=== PATIENT | female | born 1980 | race Caucasian/White ===

== ENCOUNTER 2019-02-06 12:38 | Inpatient (IN) | payer BC ==
[2019-02-06] MEDS ORDERED: SODIUM CHLORIDE 0.9% 1,000 ML IV STA (13:15)
[2019-02-06 13:40] LABS: Basophils # (A) 0.3 k/uL (0-0.2); Basophils % (A) 2 %; Eosinophils # (A) 0.3 k/uL (0-0.7); Eosinophils % (A) 2 %; HCT 33.6 % (34.0-46.0); HGB 10.6 gm/dL (11.4-16.0); Hypochromasia Moderate; Lymphocytes # (A) 1.5 k/uL (1.0-4.8); Lymphocytes % (A) 12 %; MCH 24.1 pg (25.0-35.0); MCHC 31.5 g/dL (31.0-37.0); MCV 76.6 fL (80.0-100.0); Mean Platelet Volume 6.1; Monocytes # (A) 0.7 k/uL (0-1.0); Monocytes % (A) 6 %; Neutrophils # (A) 9.8 k/uL (1.3-7.7); Neutrophils % (A) 77 %; Platelet Count 726 k/uL (150-450); RBC 4.38 m/uL (3.80-5.40); RDW 14.5 % (11.5-15.5); WBC 12.7 k/uL (3.8-10.6)
[2019-02-06 13:48] LABS: ALT 25 U/L (9-52); AST 21 U/L (14-36); African American GFR (CKD) >90 (>60 ml/min/1.73 sqM); Albumin 3.3 g/dL (3.5-5.0); Alkaline Phosphatase 62 U/L (38-126); Amylase <30 U/L (30-110); Anion Gap 9 mmol/L; Blood Urea Nitrogen 11 mg/dL (7-17); Calcium 9.7 mg/dL (8.4-10.2); Carbon Dioxide 27 mmol/L (22-30); Chloride 105 mmol/L (98-107); Glucose 101 mg/dL (74-99); Magnesium 2.1 mg/dL (1.6-2.3); Potassium 3.9 mmol/L (3.5-5.1); Sodium 141 mmol/L (137-145); Total Bilirubin 0.6 mg/dL (0.2-1.3); Total Protein 6.4 g/dL (6.3-8.2)
[2019-02-06 13:50] LABS: INR 1.1 (<1.2); Prothrombin Time 11.5 sec (9.0-12.0)
--- NOTE | 2019-02-06 14:10 | XR ---
EXAMINATION TYPE: XR chest 2V DATE OF EXAM: 02/06/2019 COMPARISON: NONE HISTORY: Shortness of breath and chest pain TECHNIQUE: Frontal and lateral views of the chest are obtained. FINDINGS: There is complete opacification of the left hemithorax. There is slight mediastinal shift to the right. The right lung demonstrates very mild central pulmonary vascular congestion most promin ent in the right infrahilar region. Osseous structures appear grossly intact. Trachea is shifted to t he right. Cardiomediastinal silhouette is obscured. IMPRESSION: Complete left hemithorax opacification. Primary consideration is for a large pleural eff usion given the slight rightward mediastinal shift. Alternative consideration is for endobronchial ob struction with mucous plugging or less likely mass.
--- NOTE | 2019-02-06 14:23 | ED ---
General Adult HPI - General Chief complaint: Recheck/Abnormal Lab/Rx Stated complaint: Abnormal EKG, chest pain Time Seen by Provider: 02/06/19 12:50 Source: patient, RN notes reviewed, old records reviewed Mode of arrival: wheelchair Limitations: no limitations - History of Present Illness Initial comments: Patient is a 38-year-old female presents emergency department today with lower extremity swelling, difficulty in breathing, decreased urine output and generalized weakness for the past month. Patient also complains of chronic constipation. She had an outpatient echocardiogram today so by her primary care doctor and was told to come to the emergency department for further evaluation. She does not know the results of the echocardiogram at this time. Patient reports that she started with a sinus infection a few weeks ago and seemed to develop worsening symptoms since that time. - Related Data Allergies Allergy/AdvReac Type Severity Reaction Status Date / Time No Known Allergies Allergy Verified 02/06/19 12:48 Review of Systems ROS Statement: Those systems with pertinent positive or pertinent negative responses have been documented in the HPI. ROS Other: All systems not noted in ROS Statement are negative. Past Medical History Past Medical History: No Reported History History of Any Multi-Drug Resistant Organisms: None Reported Past Surgical History: Orthopedic Surgery Past Psychological History: Anxiety, Depression Smoking Status: Never smoker Past Alcohol Use History: Rare Past Drug Use History: None Reported General Exam - General Exam Comments Initial Comments: 38-year-old female. Alert and oriented 3. Resting in bed. Shallow breathing noted. Limitations: no limitations General appearance: alert, in no apparent distress Head exam: Present: atraumatic, normocephalic, normal inspection Eye exam: Present: normal appearance, PERRL, EOMI. Absent: scleral icterus, conjunctival injection, periorbital swelling ENT exam: Present: normal exam, mucous membranes moist Neck exam: Present: normal inspection. Absent: tenderness, meningismus, lymphadenopathy Respiratory exam: Present: decreased breath sounds (Mother's breath sounds over the left lung field.). Absent: normal lung sounds bilaterally, respiratory distress, wheezes, rales, rhonchi, stridor Cardiovascular Exam: Present: regular rate, normal rhythm, normal heart sounds. Absent: systolic murmur, diastolic murmur, rubs, gallop, clicks GI/Abdominal exam: Present: soft, normal bowel sounds. Absent: distended, tenderness, guarding, rebound, rigid Back exam: Present: normal inspection Neurological exam: Present: alert, oriented X3, CN II-XII intact Psychiatric exam: Present: normal affect, normal mood Skin exam: Present: warm, dry, intact, normal color. 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 Blood work was initiated. Also, 12.7. Hemoglobin of 10.6. Lung sounds are diminished and she does have 4+ pitting edema bilateral lower extremities. Patient troponin test is negative. Verbal report of patient's echocardiogram shows a large pericardial effusion. Patient's resting comfortably in bed and appears stable. Oxygen saturations been 94% on room air. She was placed on oxygen to help with her breathing at this time. Chest x-ray shows evidence of opacification over the left lung field. I discussed all these findings with the family Patient. Discussed the possibility of neoplastic process. Patient family is agreeable for her to be admitted. We are to have consults to cardiothoracic surgery referral and large pericardial effusion. Discussed the case with Dr. Marks. - Lab Data Result diagrams: 02/06/19 13:02/06/19 13: Lab Results 02/06/19 02/06/19 02/06/19 Range/Units 13: 13: 13:19 WBC 12.7 H (3.8-10.6) k/uL RBC 4.38 (3.80-5.40) m/uL Hgb 10.6 L (11.4-16.0) gm/dL Hct 33.6 L (34.0-46.0) % MCV 76.6 L (80.0-100.0) fL MCH 24.1 L (25.0-35.0) pg MCHC 31.5 (31.0-37.0) g/dL RDW 14.5 (11.5-15.5) % Plt Count 726 H (150-450) k/uL Neutrophils % 77 % Lymphocytes % 12 % Monocytes % 6 % Eosinophils % 2 % Basophils % 2 % Neutrophils # 9.8 H (1.3-7.7) k/uL Lymphocytes # 1.5 (1.0-4.8) k/uL Monocytes # 0.7 (0-1.0) k/uL Eosinophils # 0.3 (0-0.7) k/uL Basophils # 0.3 H (0-0.2) k/uL Hypochromasia Moderate PT (9.0-12.0) sec INR (<1.2) APTT (22.0-30.0) sec Sodium 141 (137-145) mmol/L Potassium 3.9 (3.5-5.1) mmol/L Chloride 105 (98-107) mmol/L Carbon Dioxide 27 (22-30) mmol/L Anion Gap 9 mmol/L BUN 11 (7-17) mg/dL Creatinine 0.48 L (0.52-1.04) mg/dL Est GFR (CKD-EPI)AfAm >90 (>60 ml/min/1.73 sqM) Est GFR (CKD-EPI)NonAf >90 (>60 ml/min/1.73 sqM) Glucose 101 H (74-99) mg/dL Calcium 9.7 (8.4-10.2) mg/dL Magnesium 2.1 (1.6-2.3) mg/dL Total Bilirubin 0.6 (0.2-1.3) mg/dL AST 21 (14-36) U/L ALT 25 (9-52) U/L Alkaline Phosphatase 62 (38-126) U/L Troponin I (0.000-0.034) ng/mL NT-Pro-B Natriuret Pep 68 pg/mL Total Protein 6.4 (6.3-8.2) g/dL Albumin 3.3 L (3.5-5.0) g/dL Amylase <30 L (30-110) U/L Lipase 49 (23-300) U/L 02/06/19 02/06/19 Range/Units 13:19 13:19 WBC (3.8-10.6) k/uL RBC (3.80-5.40) m/uL Hgb (11.4-16.0) gm/dL Hct (34.0-46.0) % MCV (80.0-100.0) fL MCH (25.0-35.0) pg MCHC (31.0-37.0) g/dL RDW (11.5-15.5) % Plt Count (150-450) k/uL Neutrophils % % Lymphocytes % % Monocytes % % Eosinophils % % Basophils % % Neutrophils # (1.3-7.7) k/uL Lymphocytes # (1.0-4.8) k/uL Monocytes # (0-1.0) k/uL Eosinophils # (0-0.7) k/uL Basophils # (0-0.2) k/uL Hypochromasia PT 11.5 (9.0-12.0) sec INR 1.1 (<1.2) APTT 24.0 (22.0-30.0) sec Sodium (137-145) mmol/L Potassium (3.5-5.1) mmol/L Chloride (98-107) mmol/L Carbon Dioxide (22-30) mmol/L Anion Gap mmol/L BUN (7-17) mg/dL Creatinine (0.52-1.04) mg/dL Est GFR (CKD-EPI)AfAm (>60 ml/min/1.73 sqM) Est GFR (CKD-EPI)NonAf (>60 ml/min/1.73 sqM) Glucose (74-99) mg/dL Calcium (8.4-10.2) mg/dL Magnesium (1.6-2.3) mg/dL Total Bilirubin (0.2-1.3) mg/dL AST (14-36) U/L ALT (9-52) U/L Alkaline Phosphatase (38-126) U/L Troponin I <0.012 (0.000-0.034) ng/mL NT-Pro-B Natriuret Pep pg/mL Total Protein (6.3-8.2) g/dL Albumin (3.5-5.0) g/dL Amylase (30-110) U/L Lipase (23-300) U/L 02/06/19 14:21 EKG shows sinus tachycardia complete report a metabolic. Cannot rule out anterior infarct age undetermined. Abnormal EKG. Ventricular rate of 104 bpm. MA interval 136 most seconds. QRS duration 90 ms. QT QTC 340/457 ms. - Radiology Data Radiology results: report reviewed [facility] complete hemithorax opacification. Primary consideration is for a large pleural effusion given the right word mediastinal shift. Alternative consideration for endobronchial obstruction with mucous plugging or less likely mass. Disposition Clinical Impression: Pleural effusion, Pericardial effusion, Chronic constipation, Dyspnea Disposition: ADMITTED IP TO THIS HOSP Condition: Stable Is patient prescribed a controlled substance at d/c from ED?: No Referrals: Jose Moreno MD [Primary Care Provider] - 1-2 days Time of Disposition: 15:02
[2019-02-06] MEDS ORDERED: ONDANSETRON 4 MG/2 ML VIAL IVP PRN (15:03)
[2019-02-06] MEDS ORDERED: IBUPROFEN 400 MG TAB PO PRN (15:03)
[2019-02-06] MEDS ORDERED: cefTRIAXone IN SWFI 1,000 MG/10 ML SYRINGE IVP STA (15:03)
[2019-02-06] MEDS ORDERED: NALOXONE 0.4 MG/ML 1 ML VIAL IV PRN (15:03)
[2019-02-06] MEDS ORDERED: MORPHINE SULFATE 4 MG/ML SYRINGE IV PRN (15:03)
[2019-02-06] MEDS ORDERED: ACETAMINOPHEN TAB 325 MG TAB PO PRN (15:03)
[2019-02-06] MEDS ORDERED: SODIUM CHLORIDE 0.9% 1,000 ML IV SCH (15:15)
[2019-02-06 15:20] LABS: Appearance,Urine Cloudy (Clear); Bacteria,Urine Many /hpf; Bilirubin,Urine Negative (Negative); Blood,Urine Negative (Negative); Color,Urine Yellow; Glucose,Urine (UA) Negative (Negative); Ketones,Urine 1+ (Negative); Leukocyte Esterase,Urine Moderate (Negative); Mucus,Urine Many /hpf; Nitrite,Urine Positive (Negative); PH, Urine 5.5 (5.0-8.0); Protein,Urine 1+ (Negative); RBC,Urine 4 /hpf (0-5); Specific Gravity,Urine 1.027 (1.001-1.035); Squamous Epithelial Cell,Urine 5 /hpf (0-4); WBC,Urine 20 /hpf (0-5)
--- NOTE | 2019-02-06 17:22 | P.GSCN ---
<Jill Rhoades - Last Filed: 02/06/19 17:18> History of Present Illness Consult date: 02/06/19 Reason for Consult: Pericardial effusion, pleural effusion Requesting physician: Blanka Hamlin History of present illness: This is a 38 year old female patient who follows on an outpatient basis with Dr. Moreno. She has no significant medical history, however for the last month she has multiple complaints of left sided chest pain, shortness of breath, decreased urine output, generalized weakness, vomitting with abdominal pain, chronic constipation with diarrhea last week. In addition, she recently lost her mother to heart disease and has been having a difficult time with it and was placed on anti-depressants. She denies any fever, sick contacts, recent travel, or any other aggravating or alleviating symptoms. When reflecting on how she felt 2-3 months ago she states none of these symptoms were present. Today she had a transthoracic echocardiogram which was ordered by her primary care physician, and she was immediately sent to the emergency room for reports of large pericardial effusion. EKG was completed in the emergency room showing sinus tachycardia with right bundle branch block, heart rate 104. Chest x-ray was completed showing complete opacification of the left side with a slight mediastinal shift to the right. Urinalysis was completed resulting in positive nitrates, positive protein and ketones, moderate leukocyte esterase, 28 WBCs, and many bacteria. White blood cell count was 12.7, hemoglobin 10.6, platelet count 726, troponin was negative, and BNP was 68. Due to her pericardial effusion and pleural effusion Dr. Yan from cardiothoracic surgery was consulted for surgical recommendations. Review of Systems Review of systems was completed and was negative except as noted. - Constitutional Reports fatigue, Reports weakness - Cardiovascular Reports chest pain, Reports decreased exercise tolerance, Reports leg edema, Reports shortness of breath - Gastrointestinal Reports abdominal pain, Reports constipation, Reports diarrhea, Reports vomiting Past Medical History Past Medical History: No Reported History History of Any Multi-Drug Resistant Organisms: None Reported Past Surgical History: Orthopedic Surgery Additional Past Surgical History / Comment(s): Ankle surgery for left broken ankle, with pins placed Past Psychological History: Anxiety, Depression Additional Psychological History / Comment(s): Lost her mother recently Smoking Status: Never smoker Past Alcohol Use History: Rare Past Drug Use History: None Reported - Past Family History Mother Family Medical History: Coronary Artery Disease (CAD) Additional Family Medical History / Comment(s): at age 62 Father Family Medical History: Cancer Additional Family Medical History / Comment(s): Testicular cancer Medications and Allergies Home Medications Medication Instructions Recorded Confirmed Type Docusate [Colace] 100 mg PO HS 02/06/19 02/06/19 History Famotidine [Pepcid] 40 mg PO BID 02/06/19 02/06/19 History Ibuprofen [Motrin Ib] 800 mg PO TID PRN 02/06/19 02/06/19 History Ondansetron [Zofran ODT] 4 mg PO QID 02/06/19 02/06/19 History Sertraline [Zoloft] 50 mg PO DAILY 02/06/19 02/06/19 History Allergies Allergy/AdvReac Type Severity Reaction Status Date / Time No Known Allergies Allergy Verified 02/06/19 15:40 Surgical - Exam Vital Signs Temp Pulse Resp BP Pulse Ox 97.3 F L 110 H 20 115/72 96 02/06/19 12:41 02/06/19 12:41 02/06/19 12:41 02/06/19 12:41 02/06/19 12:41 - General well developed, well nourished, no distress, no pain, obese - Eyes PERRL, normal ocular movement - ENT no hearing loss, poor senior care - Neck no masses, no bruits, trachea midline - Respiratory Lungs sounds diminished on the left side. Respirations even, nonlabored. Currently on 2 L nasal cannula with oxygen saturation 97%. No chest wall deformities. No clubbing or cyanosis present. - Cardiovascular S1, S2 present. No distant heart sounds noted. No JVD. Tachycardic but regular rate and rhythm, sinus tach on telemetry. Palpable peripheral pulses bilaterally. 3-4+ pitting edema to bilateral lower extremities. - Abdomen Obese Abdomen: soft, non tender, bowel sounds - Genitourinary Deferred - Rectum Deferred - Integumentary no rash, no growths - Neurologic normal coordination, normal sensation - Musculoskeletal normal posture - Psychiatric oriented to time, oriented to person, oriented to place, speech is normal Results - Labs 02/06/19 13:19 02/06/19 13:19 Abnormal Lab Results - Last 24 Hours (Table) 02/06/19 02/06/19 02/06/19 Range/Units 13:19 13:19 15:00 WBC 12.7 H (3.8-10.6) k/uL Hgb 10.6 L (11.4-16.0) gm/dL Hct 33.6 L (34.0-46.0) % MCV 76.6 L (80.0-100.0) fL MCH 24.1 L (25.0-35.0) pg Plt Count 726 H (150-450) k/uL Neutrophils # 9.8 H (1.3-7.7) k/uL Basophils # 0.3 H (0-0.2) k/uL Creatinine 0.48 L (0.52-1.04) mg/dL Glucose 101 H (74-99) mg/dL Albumin 3.3 L (3.5-5.0) g/dL Amylase <30 L (30-110) U/L Urine Appearance Cloudy H (Clear) Urine Protein 1+ H (Negative) Urine Ketones 1+ H (Negative) Urine Nitrite Positive H (Negative) Ur Leukocyte Esterase Moderate H (Negative) Urine WBC 20 H (0-5) /hpf Ur Squamous Epith Cells 5 H (0-4) /hpf Urine Bacteria Many H (None) /hpf Urine Mucus Many H (None) /hpf Diabetes panel 02/06/19 Range/Units 13:19 Sodium 141 (137-145) mmol/L Potassium 3.9 (3.5-5.1) mmol/L Chloride 105 (98-107) mmol/L Carbon Dioxide 27 (22-30) mmol/L BUN 11 (7-17) mg/dL Creatinine 0.48 L (0.52-1.04) mg/dL Glucose 101 H (74-99) mg/dL Calcium 9.7 (8.4-10.2) mg/dL AST 21 (14-36) U/L ALT 25 (9-52) U/L Alkaline Phosphatase 62 (38-126) U/L Total Protein 6.4 (6.3-8.2) g/dL Albumin 3.3 L (3.5-5.0) g/dL Calcium panel 02/06/19 Range/Units 13:19 Calcium 9.7 (8.4-10.2) mg/dL Albumin 3.3 L (3.5-5.0) g/dL Pituitary panel 02/06/19 Range/Units 13:19 Sodium 141 (137-145) mmol/L Potassium 3.9 (3.5-5.1) mmol/L Chloride 105 (98-107) mmol/L Carbon Dioxide 27 (22-30) mmol/L BUN 11 (7-17) mg/dL Creatinine 0.48 L (0.52-1.04) mg/dL Glucose 101 H (74-99) mg/dL Calcium 9.7 (8.4-10.2) mg/dL Adrenal panel 02/06/19 Range/Units 13:19 Sodium 141 (137-145) mmol/L Potassium 3.9 (3.5-5.1) mmol/L Chloride 105 (98-107) mmol/L Carbon Dioxide 27 (22-30) mmol/L BUN 11 (7-17) mg/dL Creatinine 0.48 L (0.52-1.04) mg/dL Glucose 101 H (74-99) mg/dL Calcium 9.7 (8.4-10.2) mg/dL Total Bilirubin 0.6 (0.2-1.3) mg/dL AST 21 (14-36) U/L ALT 25 (9-52) U/L Alkaline Phosphatase 62 (38-126) U/L Total Protein 6.4 (6.3-8.2) g/dL Albumin 3.3 L (3.5-5.0) g/dL - Imaging Chest x-ray: report reviewed, image reviewed US - kidney/bladder: image reviewed Additional studies: Transthoracic echocardiogram films revealed Assessment and Plan Assessment: 1. Pericardial transthoracic echocardiogram 2. Large pleural effusion 3. Leukocytosis 4. Urinary tract infection 5. Chronic constipation 6. Anxiety/depression Plan: Patient was seen and examined at the bedside. Chart/diagnostics reviewed. Echocardiogram sounds and chest x-ray were reviewed with Dr. Mercado. Case was discussed with Dr. Mercado. He will see the patient shortly. Consultation placed for pulmonology, appreciate recommendations. Incentive spirometry ordered and encouraged. On review the echocardiogram films, it is difficult to tell if effusion is more pleural versus pericardial. Patient is in no acute distress, no distant heart sounds present, no JVD present, patient is calm and without difficulty breathing at this time. No surgical intervention at this time, however she may need pericardial drainage after pleural drainage. More recommendations follow. Thank you for this consult. We look forward to providing care for this patient. Time with Patient: Greater than 30 <Teetee Mercado - Last Filed: 02/06/19 17:51> Surgical - Exam Vital Signs Temp Pulse Resp BP Pulse Ox 97.3 F L 110 H 20 115/72 96 02/06/19 12:41 02/06/19 12:41 02/06/19 12:41 02/06/19 12:41 02/06/19 12:41 Results - Labs 02/06/19 13:19 02/06/19 13:19 Abnormal Lab Results - Last 24 Hours (Table) 02/06/19 02/06/19 02/06/19 Range/Units 13: 13: 15:00 WBC 12.7 H (3.8-10.6) k/uL Hgb 10.6 L (11.4-16.0) gm/dL Hct 33.6 L (34.0-46.0) % MCV 76.6 L (80.0-100.0) fL MCH 24.1 L (25.0-35.0) pg Plt Count 726 H (150-450) k/uL Neutrophils # 9.8 H (1.3-7.7) k/uL Basophils # 0.3 H (0-0.2) k/uL Creatinine 0.48 L (0.52-1.04) mg/dL Glucose 101 H (74-99) mg/dL Albumin 3.3 L (3.5-5.0) g/dL Amylase <30 L (30-110) U/L Urine Appearance Cloudy H (Clear) Urine Protein 1+ H (Negative) Urine Ketones 1+ H (Negative) Urine Nitrite Positive H (Negative) Ur Leukocyte Esterase Moderate H (Negative) Urine WBC 20 H (0-5) /hpf Ur Squamous Epith Cells 5 H (0-4) /hpf Urine Bacteria Many H (None) /hpf Urine Mucus Many H (None) /hpf Diabetes panel 02/06/19 Range/Units 13:19 Sodium 141 (137-145) mmol/L Potassium 3.9 (3.5-5.1) mmol/L Chloride 105 (98-107) mmol/L Carbon Dioxide 27 (22-30) mmol/L BUN 11 (7-17) mg/dL Creatinine 0.48 L (0.52-1.04) mg/dL Glucose 101 H (74-99) mg/dL Calcium 9.7 (8.4-10.2) mg/dL AST 21 (14-36) U/L ALT 25 (9-52) U/L Alkaline Phosphatase 62 (38-126) U/L Total Protein 6.4 (6.3-8.2) g/dL Albumin 3.3 L (3.5-5.0) g/dL Calcium panel 02/06/19 Range/Units 13:19 Calcium 9.7 (8.4-10.2) mg/dL Albumin 3.3 L (3.5-5.0) g/dL Pituitary panel 02/06/19 Range/Units 13:19 Sodium 141 (137-145) mmol/L Potassium 3.9 (3.5-5.1) mmol/L Chloride 105 (98-107) mmol/L Carbon Dioxide 27 (22-30) mmol/L BUN 11 (7-17) mg/dL Creatinine 0.48 L (0.52-1.04) mg/dL Glucose 101 H (74-99) mg/dL Calcium 9.7 (8.4-10.2) mg/dL Adrenal panel 02/06/19 Range/Units 13:19 Sodium 141 (137-145) mmol/L Potassium 3.9 (3.5-5.1) mmol/L Chloride 105 (98-107) mmol/L Carbon Dioxide 27 (22-30) mmol/L BUN 11 (7-17) mg/dL Creatinine 0.48 L (0.52-1.04) mg/dL Glucose 101 H (74-99) mg/dL Calcium 9.7 (8.4-10.2) mg/dL Total Bilirubin 0.6 (0.2-1.3) mg/dL AST 21 (14-36) U/L ALT 25 (9-52) U/L Alkaline Phosphatase 62 (38-126) U/L Total Protein 6.4 (6.3-8.2) g/dL Albumin 3.3 L (3.5-5.0) g/dL Assessment and Plan Plan: As above. Discussed with Dr Ortega. Norris Pleural/pericardial effusion . Hemodynamic surprisingly relatively stable with BP 129/787 HR 104, 96% O2 sat Plan would be to proceed with therapeutic and diagnostic left thoracentesis initially. Repeat echo subsequently to re-evaluate pericardial effusion to decide if it warrants drainage. Plan explained to patient and her father. Will keep her NPO fo row. Teetee Mercado MD
[2019-02-06] MEDS: DEXTROSE 5%-0.45% NACL 1,000 ML IV SCH (18:06)
--- NOTE | 2019-02-06 19:16 | US ---
EXAMINATION TYPE: US chest DATE OF EXAM: 02/06/2019 COMPARISON: XR CLINICAL HISTORY: Markings for thoracentesis by pulmonary staff. Markings for thora. TECHNIQUE: Targeted ultrasound of the posterior lower bilateral hemithoraces EXAM MEASUREMENTS: Right Pleural Effusion pocket size: no fluid seen at this time Left Pleural Effusion pocket size: To tissue: 5.91 cm Full pocket: 12.15 cm Left skin surface to fluid distance: 3.55 cm Left side marked for possible thoracentesis outside the dept. Pulmonologists are able to review the images in the patient?s EMR. IMPRESSIONS: There is demonstration of a large left pleural effusion.
[2019-02-06 19:30] LABS: Glucose,Whole Blood 96 mg/dL (75-99)
--- NOTE | 2019-02-06 19:56 | P.CNPUL ---
History of Present Illness Consult date: 02/06/19 Reason for consult: pleural effusion Chief complaint: Shortness of breath and chest pain. History of present illness: This is a 38-year-old female with no significant past medical history except for anxiety and depression, nonsmoker, patient has been seeing her primary care physician for the last few weeks with mostly complaints of musculoskeletal left- sided chest pain, shortness of breath, generalized weakness, increased fluid retention and swelling in her lower extremities, intermittent episodes of vague abdominal pains, nausea and vomiting. Patient had a recent loss of her mother secondary to heart disease, and patient was placed on antidepressants. Patient was sent for a transthoracic echocardiogram as part of the workup for her symptoms, and she was told that she had a large pleural effusion and a large pericardial effusion hence she was sent to the emergency room for further evaluation. EKG in the ER showed sinus tachycardia with right bundle branch block pattern. Chest x-ray showed significant left sided pleural effusion with mediastinal shift to the right. Urinalysis was positive for nitrates, protein and ketones and leukocytes esterase. Obviously there was evidence of pyuria and bacteriuria in the urine. Patient was also noted to have elevated platelets of 726. She had normal BNP level. Patient was seen initially by cardiac surgery, and I was notified by the cardiac surgeon about her pleural effusion, hence I made arrangements to transfer the patient to the ICU from the monitor bed on , and I came in and performed a left-sided thoracentesis. 1750 mL of serosanguineous fluid removed from the left pleural space, and the fluid was sent for different diagnostic studies. In the meantime I have ordered some laboratory studies including thyroid studies, BARBARA, sed rate, CA 125, and a pelvic ultrasound to be done tomorrow. Patient had no previous history of recent pulmonary infection she had no recent history of cardiac issues patient has been complaining of multiple constitutional symptoms as noted above. For her abnormal urinalysis, patient was placed on Rocephin. Cultures of the urine are pending. Review of Systems Constitutional: Multiple symptoms as noted in HPI. Pulmonary: Shortness of breath and musculoskeletal chest wall pain on the left side when she moves no cough no fever no chills no hemoptysis. cardiac: Denies any palpitations, denies any orthopnea, denies any syncope. Denies any anginal symptoms. GI: Intermittent episodes of nausea and vomiting for the last few weeks. Genitourinary: Denies any dysuria frequency or urgency. Endocrine: Denies any heat or cold intolerance. Denies any polyuria polydipsia or polyphagia. [place] skeletal: Mostly symptoms of generalized weakness and fatigue. Neurologic: Denies any headaches no blurred vision dizziness, but she does have generalized weakness. Psychiatric: Patient has symptoms of depression anxiety denies any suicidal or homicidal thoughts. Hematologic: Denies any clotting bleeding or bruising. Skin: Denies any pruritus and rashes. Past Medical History Past Medical History: No Reported History History of Any Multi-Drug Resistant Organisms: None Reported Past Surgical History: Orthopedic Surgery Additional Past Surgical History / Comment(s): Ankle surgery for left broken ankle, with pins placed Past Psychological History: Anxiety, Depression Additional Psychological History / Comment(s): Lost her mother recently Smoking Status: Never smoker Past Alcohol Use History: None Reported Past Drug Use History: None Reported - Past Family History Mother Family Medical History: Coronary Artery Disease (CAD) Additional Family Medical History / Comment(s): at age 62-bad valve- pacemaker Father Family Medical History: Cancer Additional Family Medical History / Comment(s): Testicular cancer Medications and Allergies Home Medications Medication Instructions Recorded Confirmed Type Docusate [Colace] 100 mg PO HS 02/06/19 02/06/19 History Famotidine [Pepcid] 40 mg PO BID 02/06/19 02/06/19 History Ibuprofen [Motrin Ib] 800 mg PO TID PRN 02/06/19 02/06/19 History Ondansetron [Zofran ODT] 4 mg PO QID 02/06/19 02/06/19 History Sertraline [Zoloft] 50 mg PO DAILY 02/06/19 02/06/19 History Allergies Allergy/AdvReac Type Severity Reaction Status Date / Time No Known Allergies Allergy Verified 02/06/19 15:40 Physical Exam Vitals: Vital Signs Temp Pulse Pulse Resp BP BP Pulse Ox 02/06/19 17:34 98.2 F 108 H 26 H 134/88 97 02/06/19 17:29 24 02/06/19 16:30 104 H 16 129/87 96 02/06/19 16:00 104 H 20 120/76 96 02/06/19 15:30 103 H 24 130/79 98 02/06/19 14:27 103 H 18 130/79 97 02/06/19 13:30 105 H 21 142/104 100 02/06/19 13:29 100 02/06/19 12:41 97.3 F L 110 H 20 115/72 96 Intake and Output 02/06/19 02/06/19 02/06/19 06:59 14:59 22:59 Other: Voiding Method Toilet Weight 111.13 kg Physical Exam: Revealed a 38-year-old female pleasant, looks chronically ill. Head: Atraumatic normocephalic. HEENT:[Neck is supple.] [No neck masses.] [No thyromegaly.] [No JVD.] No stridor. Chest: [Diminished breath sounds and dullness on the left side, however right side is clear. No crackles or rhonchi or wheezes. Cardiac Exam: [Normal S1 and S2, no S3 gallop, no murmur.] Abdomen: [Obese, Soft, nontender, no megaly, no rebound, no guarding, normal bowel sounds.] Extremities: [No clubbing, 2+ bipedal edema, no cyanosis.] Neurological Exam: [No focal neurologic deficit.] Alert and oriented 3. Psychiatric: Normal mood affect and normal mental status examination. Skin: No rashes. Musculoskeletal: No deformities normal range of motion. Results - Laboratory Findings CBC and BMP: 02/06/19 13:19 02/06/19 13:19 PT/INR, D-dimer PT 11.5 sec (9.0-12.0) 02/06/19 13: INR 1.1 (<1.2) 02/06/19 13:19 Abnormal lab findings: Abnormal Labs 02/06/19 02/06/19 02/06/19 13:19 13:19 15:00 WBC 12.7 H Hgb 10.6 L Hct 33.6 L MCV 76.6 L MCH 24.1 L Plt Count 726 H Neutrophils # 9.8 H Basophils # 0.3 H Creatinine 0.48 L Glucose 101 H Albumin 3.3 L Amylase <30 L Urine Appearance Cloudy H Urine Protein 1+ H Urine Ketones 1+ H Urine Nitrite Positive H Ur Leukocyte Esterase Moderate H Urine WBC 20 H Ur Squamous Epith Cells 5 H Urine Bacteria Many H Urine Mucus Many H - Diagnostic Findings Chest x-ray: image reviewed (As noted in HPI.) Assessment and Plan Assessment: Impression: 1 left-sided pleural effusion, exact histology is not clear, however considering the patient's age and that the results of the fluid, I would definitely be concerned about malignancy. Hence the fluid was sent for different diagnostic studies. Including cytology. Possibility of infection and parapneumonic pleural effusion is not entirely ruled out, cell count and differential and cultures are pending on the fluid. 2 status post left-sided thoracentesis 3 possible pericardial effusion, repeat echocardiogram will be done in a.m. 4 acute urinary tract infection 5 chronic constipation, thyroid studies have been ordered. 6 history of anxiety and depression. Recommendation: Left-sided thoracentesis was performed and the fluid was sent for different diagnostic studies. Repeat chest x-ray, echocardiogram in a.m. Agree with Rocephin for urinary tract infection Thyroid studies plus BARBARA, sed rate, CA 125, were ordered. Ultrasound of the abdomen and pelvis was ordered to be done in a.m., would be concerned about the possibility of ovarian malignancy with pleural effusion. And that is yet to be determined. We will continue to follow. Time with Patient: Greater than 30
--- NOTE | 2019-02-06 19:58 | XR ---
EXAMINATION TYPE: XR chest 1V portable DATE OF EXAM: 02/06/2019 COMPARISON: Today HISTORY: Short of breath TECHNIQUE: Single frontal view of the chest is obtained. FINDINGS: There is significant opacification left hemithorax. The right lung is relatively clear. Th ere are chest leads. IMPRESSION: Left side pulmonary consolidation and pleural fluid improved slightly compared to exam e arlier today. Heart is shifted slightly to the right side suggestive of some degree of tension hydrot horax.
[2019-02-06 20:36] LABS: T4, Free (Free Thyroxine) 2.39 ng/dL (0.78-2.19)
--- NOTE | 2019-02-06 21:04 | P.HPIM ---
History of Present Illness H&P Date: 02/06/19 Chief Complaint: Pleural effusion This is interested on 38-year-old female who saw me last week in the office was complaining of significant dyspnea. Murmur was heard and echocardiogram was ordered and showed once dental large left pleural effusion with possible pericardial effusion. The patient has now had status post left sided thoracentesis. The patient's studies on the fluid are pending. She is a nonsmoker. Hemodynamically she has been stable. No fever or chills although we treated her for element of infection because of her significant dyspnea and cough. Review of Systems Constitutional: Denies chills, Denies fever Eyes: denies blurred vision, denies pain Ears, nose, mouth and throat: Denies headache, Denies sore throat Cardiovascular: Denies chest pain, Denies shortness of breath Respiratory: Reports cough Gastrointestinal: Denies abdominal pain, Denies diarrhea, Denies nausea, Denies vomiting Genitourinary: Denies dysuria, Denies hematuria Musculoskeletal: Denies myalgias Past Medical History Past Medical History: No Reported History History of Any Multi-Drug Resistant Organisms: None Reported Past Surgical History: Orthopedic Surgery Additional Past Surgical History / Comment(s): Ankle surgery for left broken an kle, with pins placed Past Psychological History: Anxiety, Depression Additional Psychological History / Comment(s): Lost her mother recently Smoking Status: Never smoker Past Alcohol Use History: None Reported Past Drug Use History: None Reported - Past Family History Mother Family Medical History: Coronary Artery Disease (CAD) Additional Family Medical History / Comment(s): at age 62-bad valve- pacemaker Father Family Medical History: Cancer Additional Family Medical History / Comment(s): Testicular cancer Medications and Allergies Home Medications Medication Instructions Recorded Confirmed Type Docusate [Colace] 100 mg PO HS 02/06/19 02/06/19 History Famotidine [Pepcid] 40 mg PO BID 02/06/19 02/06/19 History Ibuprofen [Motrin Ib] 800 mg PO TID PRN 02/06/19 02/06/19 History Ondansetron [Zofran ODT] 4 mg PO QID 02/06/19 02/06/19 History Sertraline [Zoloft] 50 mg PO DAILY 02/06/19 02/06/19 History Allergies Allergy/AdvReac Type Severity Reaction Status Date / Time No Known Allergies Allergy Verified 02/06/19 15:40 Physical Exam Vitals: Vital Signs Temp Pulse Pulse Resp BP BP Pulse Ox 02/06/19 17:34 98.2 F 108 H 26 H 134/88 97 02/06/19 17:29 24 02/06/19 16:30 104 H 16 129/87 96 02/06/19 16:00 104 H 20 120/76 96 02/06/19 15:30 103 H 24 130/79 98 02/06/19 14:27 103 H 18 130/79 97 02/06/19 13:30 105 H 21 142/104 100 02/06/19 13:29 100 02/06/19 12:41 97.3 F L 110 H 20 115/72 96 Intake and Output 02/06/19 02/06/19 02/06/19 06:59 14:59 22:59 Other: Voiding Method Toilet Weight 111.13 kg - Constitutional General appearance: no acute distress, obese - EENT Eyes: EOMI - Neck Neck: no lymphadenopathy - Respiratory Respiratory: left: rales, rhonchi - Cardiovascular Rhythm: regular Heart sounds: normal: S1, S2 Abnormal Heart Sounds: no S3 Gallop - Gastrointestinal General gastrointestinal: soft, no tenderness - Psychiatric Psychiatric: A&O x's 3 Results CBC & Chem 7: 02/06/19 13:19 02/06/19 13:19 Labs: Abnormal Lab Results - Last 24 Hours (Table) 02/06/19 02/06/19 02/06/19 Range/Units : 13:19 15:00 WBC 12.7 H (3.8-10.6) k/uL Hgb 10.6 L (11.4-16.0) gm/dL Hct 33.6 L (34.0-46.0) % MCV 76.6 L (80.0-100.0) fL MCH 24.1 L (25.0-35.0) pg Plt Count 726 H (150-450) k/uL Neutrophils # 9.8 H (1.3-7.7) k/uL Basophils # 0.3 H (0-0.2) k/uL Creatinine 0.48 L (0.52-1.04) mg/dL Glucose 101 H (74-99) mg/dL Albumin 3.3 L (3.5-5.0) g/dL Amylase <30 L (30-110) U/L Free T4 (0.78-2.19) ng/dL Urine Appearance Cloudy H (Clear) Urine Protein 1+ H (Negative) Urine Ketones 1+ H (Negative) Urine Nitrite Positive H (Negative) Ur Leukocyte Esterase Moderate H (Negative) Urine WBC 20 H (0-5) /hpf Ur Squamous Epith Cells 5 H (0-4) /hpf Urine Bacteria Many H (None) /hpf Urine Mucus Many H (None) /hpf 02/06/19 Range/Units 19:51 WBC (3.8-10.6) k/uL Hgb (11.4-16.0) gm/dL Hct (34.0-46.0) % MCV (80.0-100.0) fL MCH (25.0-35.0) pg Plt Count (150-450) k/uL Neutrophils # (1.3-7.7) k/uL Basophils # (0-0.2) k/uL Creatinine (0.52-1.04) mg/dL Glucose (74-99) mg/dL Albumin (3.5-5.0) g/dL Amylase (30-110) U/L Free T4 2.39 H (0.78-2.19) ng/dL Urine Appearance (Clear) Urine Protein (Negative) Urine Ketones (Negative) Urine Nitrite (Negative) Ur Leukocyte Esterase (Negative) Urine WBC (0-5) /hpf Ur Squamous Epith Cells (0-4) /hpf Urine Bacteria (None) /hpf Urine Mucus (None) /hpf Thrombosis Risk Factor Assmnt - Choose All That Apply Any of the Below Risk Factors Present?: Yes Each Factor Represents 1 point: Age 41-60 years, Obesity (BMI >25), Swollen legs (current) Other Risk Factors: No Other congenital or acquired thrombophilia - If yes, enter type in comment: No Thrombosis Risk Factor Assessment Total Risk Factor Score: 3 Thrombosis Risk Factor Assessment Level: Moderate Risk Assessment and Plan (1) Dyspnea Current Visit: Yes Status: Acute Code(s): R06.00 - DYSPNEA, UNSPECIFIED SNOMED Code(s): 754031819 (2) Pericardial effusion Current Visit: Yes Status: Acute Code(s): I31.3 - PERICARDIAL EFFUSION (NONINFLAMMATORY) SNOMED Code(s): 078726734 (3) Pleural effusion Current Visit: Yes Status: Acute Code(s): J90 - PLEURAL EFFUSION, NOT ELSEWHERE CLASSIFIED SNOMED Code(s): 60912557 Plan: Status post thoracentesis. Check CBC and CMP in a.m. Await fluid studies. Appreciate multiple consultants input. Reconcile medications as necessary. She is full code otherwise.
[2019-02-06] MEDS ORDERED: ZOLPIDEM 5 MG TAB PO PRN ×2 (21:28→22:33)
[2019-02-06 22:18] LABS: Appearance,BF Hazy; Color,BF Orange; Nucleated Cells, Body Fluid 1275 /uL; RBC, Body Fluid 6630 /uL
[2019-02-06 22:19] LABS: Mononuclear WBC,Body Fluid 95 %; Polynuclear WBC,Body Fluid 5 %
[2019-02-07] MEDS ORDERED: DEXTROSE 5%-0.45% NACL 1,000 ML IV SCH (00:01)
[2019-02-07 04:55] LABS: HCT 30.1 % (34.0-46.0); HGB 9.3 gm/dL (11.4-16.0); Hypochromasia Slight; MCH 23.4 pg (25.0-35.0); MCHC 30.8 g/dL (31.0-37.0); MCV 76.1 fL (80.0-100.0); Mean Platelet Volume 6.6; Microcytosis Slight; Platelet Count 649 k/uL (150-450); RBC 3.95 m/uL (3.80-5.40); RDW 15.1 % (11.5-15.5); WBC 13.5 k/uL (3.8-10.6)
[2019-02-07 05:06] LABS: ALT 20 U/L (9-52); AST 19 U/L (14-36); African American GFR (CKD) >90 (>60 ml/min/1.73 sqM); Albumin 2.6 g/dL (3.5-5.0); Alkaline Phosphatase 53 U/L (38-126); Anion Gap 7 mmol/L; Blood Urea Nitrogen 10 mg/dL (7-17); Carbon Dioxide 26 mmol/L (22-30); Chloride 106 mmol/L (98-107); Glucose 103 mg/dL (74-99); Potassium 3.7 mmol/L (3.5-5.1); Sodium 139 mmol/L (137-145); Total Bilirubin 0.6 mg/dL (0.2-1.3); Total Protein 5.3 g/dL (6.3-8.2)
[2019-02-07 05:24] LABS: Total Protein, Body Fluid 3830 mg/dL
[2019-02-07 05:37] LABS: Amylase, Fluid Source Pleural Fluid; Glucose, BF Source Pleural Fluid; Glucose, Body Fluid 103 mg/dL; LDH, Body Fluid Source Pleural Fluid
--- NOTE | 2019-02-07 06:47 | PCN ---
PROCEDURE NOTE OPERATIVE REPORT: Left-sided thoracentesis. PREOPERATIVE DIAGNOSIS: Large left pleural effusion. POSTOPERATIVE DIAGNOSIS: Large left pleural effusion. ANESTHESIA USED: 2 mL of 1% lidocaine. PROCEDURE: The patient was placed in a sitting upright position, the area below the left scapula was prepared in a sterile fashion and drapes were applied. The area of the fluid was earlier localized by ultrasound guidance. At the level of the 8th intercostal space and tip of the scapula, the area was locally anesthetized, and a 26-gauge needle was inserted, advanced into the pleural space until the fluid was localized. Then a small tiny incision was made at the same site, a standard thoracentesis catheter and needle were used, the needle was inserted at the same site, advanced into the pleural space until fluid was obtained and then the catheter was advanced over the needle into the pleural space, and the needle was pulled out of the pleural space. Freely flowing fluid was removed, roughly 1750 mL of slightly serosanguineous left side pleural effusion was drained. Fluid was sent for different diagnostic studies. Procedure was well tolerated, no evidence of any immediate complication. Chest x-ray was ordered postoperatively and it is pending at the time of dictation. MMODL / IJN: [id number] /
--- NOTE | 2019-02-07 07:21 | P.CRDCN ---
History of Present Illness Consult date: 02/07/19 Chief complaint: Weakness/shortness of breath History of present illness: This is a 38-year-old female patient with no significant past medical history of diabetes or hypertension or dyslipidemia but does have history of depression was referred to the emergency room after an echocardiogram was performed. The patient was seen recently by her primary care physician reported to have increasing in her fatigue and weakness as well as increasing shortness of breath as well as water retention with edema in the upper and lower extremities. Yuliya se of that an echocardiogram was ordered. The patient was in the hospital yesterday to have an echocardiogram which showed "large pericardial and pleural effusion". Subsequently the patient was referred to the emergency room and then she was admitted for further evaluation. The patient also was reporting symptoms of chest discomfort which is atypical. In the ER, the EKG showed sinus rhythm with sinus tachycardia. The chest x-ray showed significant left pleural effusion. She was seen subsequently by cardiothoracic surgeon and then by Dr. Ortega who did perform a left pleurocentesis which felt by visual estimation to be possibly related to cancer. The patient stated that she has been losing weight lately. Cancer markers where ordered. Ultrasound of the abdomen also was ordered. I don't have the official echo report as of yet. As a mentioned earlier the patient does not have any history of diabetes or hypertension or dyslipidemia or coronary artery disease. No major surgery in the past. She is not a smoker as well. Currently she is in the intensive care unit. She feels better after the left pleurocentesis. She is in sinus tachycardia and her pressure has been stable at this point. TSH is within normal limits. BMP is within normal limits as well. Past Medical History Past Medical History: No Reported History History of Any Multi-Drug Resistant Organisms: None Reported Past Surgical History: Orthopedic Surgery Additional Past Surgical History / Comment(s): Ankle surgery for left broken ankle, with pins placed Past Psychological History: Anxiety, Depression Additional Psychological History / Comment(s): Lost her mother recently Smoking Status: Never smoker Past Alcohol Use History: None Reported Past Drug Use History: None Reported - Past Family History Mother Family Medical History: Coronary Artery Disease (CAD) Additional Family Medical History / Comment(s): at age 62-bad valve- pacemaker Father Family Medical History: Cancer Additional Family Medical History / Comment(s): Testicular cancer Medications and Allergies Home Medications Medication Instructions Recorded Confirmed Type Docusate [Colace] 100 mg PO HS 02/06/19 02/06/19 History Famotidine [Pepcid] 40 mg PO BID 02/06/19 02/06/19 History Ibuprofen [Motrin Ib] 800 mg PO TID PRN 02/06/19 02/06/19 History Ondansetron [Zofran ODT] 4 mg PO QID 02/06/19 02/06/19 History Sertraline [Zoloft] 50 mg PO DAILY 02/06/19 02/06/19 History Allergies Allergy/AdvReac Type Severity Reaction Status Date / Time No Known Allergies Allergy Verified 02/06/19 15:40 Physical Exam Vitals: Vital Signs Temp Pulse Pulse Resp BP BP Pulse Ox 02/07/19 07:00 107 H 39 H 128/82 96 02/07/19 06:30 102 H 24 124/88 02/07/19 06:00 102 H 30 H 118/82 94 L 02/07/19 05:30 105 H 36 H 132/88 02/07/19 05:00 104 H 36 H 119/77 02/07/19 04:30 106 H 46 H 115/80 02/07/19 04:00 99.4 F 109 H 40 H 113/72 95 02/07/19 03:30 107 H 38 H 121/80 96 02/07/19 03:00 96 49 H 127/82 02/07/19 02:30 128 H 55 H 128/86 02/07/19 02:00 102 H 24 99/72 02/07/19 01:30 106 H 27 H 118/80 02/07/19 01:00 110 H 41 H 131/82 02/07/19 00:30 106 H 42 H 125/81 99 02/07/19 00:00 99 F 104 H 30 H 115/86 98 02/06/19 23:38 105 H 29 H 119/86 94 L 02/06/19 23:30 108 H 35 H 111/77 91 L 02/06/19 23:00 107 H 46 H 118/80 02/06/19 22:30 105 H 35 H 127/78 02/06/19 22:00 109 H 49 H 114/77 92 L 02/06/19 21:30 105 H 55 H 129/87 02/06/19 21:00 108 H 24 134/88 02/06/19 20:30 105 H 38 H 89 L 02/06/19 20:00 98 39 H 118/67 02/06/19 19:30 105 H 64 H 115/73 92 L 02/06/19 19:11 118 H 32 H 02/06/19 17:34 98.2 F 108 H 26 H 134/88 97 02/06/19 17:29 24 02/06/19 16:30 104 H 16 129/87 96 02/06/19 16:00 104 H 20 120/76 96 02/06/19 15:30 103 H 24 130/79 98 02/06/19 14:27 103 H 18 130/79 97 02/06/19 13:30 105 H 21 142/104 100 02/06/19 13:29 100 02/06/19 12:41 97.3 F L 110 H 20 115/72 96 Intake and Output 02/06/19 02/07/19 02/07/19 22:59 06:59 14:59 Intake Total 50 450 Balance 50 450 Intake: IV 50 450 Dextrose 5%-0.45% NaCl 1, 50 450 000 ml @ 50 mls/hr IV . Q20H [facility] Rx#:[id number] Other: Voiding Method Toilet # Voids 1 - Constitutional General appearance: no acute distress - Respiratory Respiratory: left: diminished - Cardiovascular Rhythm: regular Heart sounds: normal: S1, S2 Results 02/07/19 03:54 02/07/19 03:54 Cardiac Enzymes 02/06/19 02/06/19 02/07/19 Range/Units 13:19 13:19 03:54 AST 21 19 (14-36) U/L Troponin I <0.012 (0.000-0.034) ng/mL Coagulation 02/06/19 Range/Units 13:19 PT 11.5 (9.0-12.0) sec APTT 24.0 (22.0-30.0) sec CBC 02/06/19 02/07/19 Range/Units 13:19 03:54 WBC 12.7 H 13.5 H (3.8-10.6) k/uL RBC 4.38 3.95 (3.80-5.40) m/uL Hgb 10.6 L 9.3 L (11.4-16.0) gm/dL Hct 33.6 L 30.1 L (34.0-46.0) % Plt Count 726 H 649 H (150-450) k/uL Comprehensive Metabolic Panel 02/06/19 02/07/19 Range/Units : 03:54 Sodium 141 139 (137-145) mmol/L Potassium 3.9 3.7 (3.5-5.1) mmol/L Chloride 105 106 (98-107) mmol/L Carbon Dioxide 27 26 (22-30) mmol/L BUN 11 10 (7-17) mg/dL Creatinine 0.48 L 0.49 L (0.52-1.04) mg/dL Glucose 101 H 103 H (74-99) mg/dL Calcium 9.7 9.0 (8.4-10.2) mg/dL AST 21 19 (14-36) U/L ALT 25 20 (9-52) U/L Alkaline Phosphatase 62 53 (38-126) U/L Total Protein 6.4 5.3 L (6.3-8.2) g/dL Albumin 3.3 L 2.6 L (3.5-5.0) g/dL Current Medications Generic Name Dose Route Start Last Admin Trade Name Freq PRN Reason Stop Dose Admin Acetaminophen 650 mg 02/06/19 15:03 Tylenol Tab PO Q6HR PRN Mild Pain or Fever > 100.5 Sodium Chloride 1,000 mls @ 20 mls/hr 02/06/19 13:15 02/06/19 13:20 Saline 0.9% IV 02/07/19 13:14 Not Given .Q24H STA Sodium Chloride 1,000 mls @ 20 mls/hr 02/06/19 15:15 02/06/19 18:06 Saline 0.9% IV Not Given .Q24H [facility] Dextrose/Sodium Chloride 1,000 mls @ 50 mls/hr 02/06/19 17:51 02/06/19 18:06 Dextrose 5%-1/2ns Iv Soln IV 50 mls/hr .Q20H [facility] Administration Ibuprofen 400 mg 02/06/19 15:03 Motrin PO Q6HR PRN Mild Pain or Fever > 100.5 Ketorolac Tromethamine 30 mg 11/13/19 15:03 Toradol IVP 02/11/19 15:04 Q6HR PRN Moderate Pain Metoprolol Tartrate 12.5 mg 02/07/19 09:00 Lopressor PO BID [facility] Morphine Sulfate 4 mg 02/06/19 15:03 Morphine Sulfate (Inj) IV Q4HR PRN Severe Pain Naloxone HCl 0.2 mg 02/06/19 15:03 Narcan IV Q2M PRN Opioid Reversal Ondansetron HCl 4 mg 02/06/19 15:03 Zofran IVP Q8HR PRN Nausea And Vomiting Pantoprazole Sodium 40 mg 02/07/19 09:00 Protonix IV DAILY [facility] Zolpidem Tartrate 5 mg 02/06/19 22:33 Ambien PO HS PRN Insomnia Intake and Output 02/06/19 02/07/19 02/07/19 22:59 06:59 14:59 Intake Total 50 450 Balance 50 450 Intake: IV 50 450 Dextrose 5%-0.45% NaCl 1, 50 450 000 ml @ 50 mls/hr IV . Q20H [facility] Rx#:[id number] Other: Voiding Method Toilet # Voids 1 02/07/19 03:54 02/07/19 03:54 Assessment and Plan Assessment: Assessment #1 left sided large pleurocentesis of unknown etiology at this point. Cancer to be ruled out. We will follow-up with the pathology. #2 possible pericardial effusion. We'll follow-up on the echocardiogram. #3 sinus tachycardia. The patient remained hemodynamically stable into of blood pressure. Plan #1 will follow-up with the pathology on the pericardiocentesis fluid #2 start the patient on small dose of metoprolol 12.5 mg by mouth twice a day #3 follow-up on the echocardiogram #4 rule out cancer #5 follow-up with the patient
--- NOTE | 2019-02-07 08:12 | XR ---
EXAMINATION TYPE: XR chest 1V portable DATE OF EXAM: 02/07/2019 Comparison: 02/06/2019 Clinical History: 38-year-old female Pleural effusion Findings: Left side of the heart is now entirely obscured by adjacent pleural parenchymal opacity. Now complete white out of the left hemithorax. There may be some patchy medial right basilar opacity, slightly in creased. Impression: Now complete white out of the left hemithorax suggesting enlarging large pleural effusion and likely underlying atelectasis and/or consolidation as well. Some patchy airspace disease medial right base a ppears increased as well.
[2019-02-07] MEDS ORDERED: PANTOPRAZOLE 40 MG/10 ML VIAL IV SCH (09:00)
[2019-02-07] MEDS: METOPROLOL TARTRATE 12.5 MG TAB PO SCH ×2 (09:19→20:42)
--- NOTE | 2019-02-07 09:57 | ECHOF ---
Referral Reason:pericardial effusion MEASUREMENTS -------- HEIGHT: 157.5 cm WEIGHT: 111.1 kg BP: 128/82 FINDINGS -------- Resting tachycardia (HR>100bpm). Limited Study There is a trivial pericardial effusion present. Large Pleural Effusion. CONCLUSIONS -------- 1. Resting tachycardia (HR>100bpm). 2. Limited Study 3. There is a trivial pericardial effusion present. 4. Large Pleural Effusion. [employer]: Nunu Tayolr ZACHARIAH
--- NOTE | 2019-02-07 11:35 | US ---
EXAMINATION TYPE: US abdomen complete DATE OF EXAM: 02/07/2019 COMPARISON: NONE CLINICAL HISTORY: 38-year-old female possible ovarian malignancy, has pleural effusion. ICU patient h as not been feeling well for a few weeks TECHNIQUE: Multiple sonographic images of the abdomen are obtained. FINDINGS: EXAM MEASUREMENTS: Liver Length: 15.7 cm Gallbladder Wall: 0.4 cm CBD: 0.8 cm Spleen: 8.7 cm Right Kidney: 12.4 x 6.3 x 5.4 cm Left Kidney: not seen Pancreas: unable to view due to bowel gas Liver: Limited views, heterogeneous exterior right liver lobe lesion 3.3cm Gallbladder: Unable to adequately visualize, possible wall echo shadow complex. Evidence for sonographic Cintron's sign: no CBD: Mildly dilated. Spleen: wnl Right Kidney: wnl Left Kidney: not seen Upper IVC: wnl Abd Aorta: not seen Street Light Servicer Supervisor notes: 26.1 x 20.5 x 16.5cm midline complex solid cystic, predominantly solid abdomina l mass that extends into the LUQ and obscures view of left kidney pleural effusion seen mild ascites seen IMPRESSION: 1. Large complex solid cystic, primarily solid mass filling the abdomen extending up to the left uppe r quadrant and causing limitation in visualization of the abdominal structures. This measures up to 2 6.1 cm. Ovarian neoplasm is in the differential. 2. A 3.3 cm heterogeneous lesion within the posterior right liver lobe. This warrants further workup. 3. Mildly dilated bile duct at 8 mm. Correlate with alkaline phosphatase and bilirubin levels. 4. Unable to adequately visualize the gallbladder, possible wall echo shadow complex which can be see n with a gallbladder packed with calculi. 5. Mild abdominal ascites. Pleural effusion. 6. Unable to visualize the left kidney due to the patient's abdominal mass.
--- NOTE | 2019-02-07 12:04 | P.PN ---
Subjective Progress Note Date: 02/07/19 Principal diagnosis: Large left pleural effusion, possible ovarian cancer. This is a 38-year-old female with no significant past medical history except for anxiety and depression, nonsmoker, patient has been seeing her primary care physician for the last few weeks with mostly complaints of musculoskeletal left- sided chest pain, shortness of breath, generalized weakness, increased fluid retention and swelling in her lower extremities, intermittent episodes of vague abdominal pains, nausea and vomiting. Patient had a recent loss of her mother secondary to heart disease, and patient was placed on antidepressants. Patient was sent for a transthoracic echocardiogram as part of the workup for her symptoms, and she was told that she had a large pleural effusion and a large p ericardial effusion hence she was sent to the emergency room for further evaluation. EKG in the ER showed sinus tachycardia with right bundle branch block pattern. Chest x-ray showed significant left sided pleural effusion with mediastinal shift to the right. Urinalysis was positive for nitrates, protein and ketones and leukocytes esterase. Obviously there was evidence of pyuria and bacteriuria in the urine. Patient was also noted to have elevated platelets of 726. She had normal BNP level. Patient was seen initially by cardiac surgery, and I was notified by the cardiac surgeon about her pleural effusion, hence I made arrangements to transfer the patient to the ICU from the monitor bed on , and I came in and performed a left-sided thoracentesis. 1750 mL of serosanguineous fluid removed from the left pleural space, and the fluid was sent for different diagnostic studies. In the meantime I have ordered some laboratory studies including thyroid studies, BARBARA, sed rate, CA 125, and a pelvic ultrasound to be done tomorrow. Patient had no previous history of recent pulmonary infection she had no recent history of cardiac issues patient has been complaining of multiple constitutional symptoms as noted above. For her abnormal urinalysis, patient was placed on Rocephin. Cultures of the urine are pending. Patient was reevaluated today on 02/07/2019, patient remains in the ICU, she underwent large-volume left sided thoracentesis yesterday, 1750 mL of fluid were drained from the left pleural space. Patient had repeat chest x-ray today, and most of the fluid seems to be coming back, hence I recommended pigtail catheter placement by interventional radiology, and the patient had an ultrasound of the abdomen and pelvis, ultrasound showed a large complex solid cystic mass filling the abdomen extending up to the left upper quadrant and causing limitation in the visualization of abdominal structures felt to be ovarian neoplasm unless proven otherwise. She was also noted to have a mild abdominal ascites. Most likely we are dealing with a picture of ovarian cancer, and I went ahead and recommended INCOME TAX INVESTIGATOR evaluation of the patient, I have also recommended pigtail catheter placement since the fluid seems to be coming back within a very short period of time. Patient may eventually require surgical placement of catheter by thoracic surgery this will be decided upon in the near future. Patient's CEA 125 was noted to be extremely elevated, her thyroid studies are basically unremarkable, CA-125 antigen was 124. CBC is relatively normal hemoglobin is 9.3 platelets are high 649 clinically the patient is feeling a bit better, however overnight she desaturated and she is now on a 50% Ventimask. Objective - Vital Signs Vital signs: Vital Signs Temp 99.4 F 02/07/19 04:00 Pulse 95 02/07/19 11:00 Resp 32 H 02/07/19 11:00 BP 117/80 02/07/19 11:00 Pulse Ox 90 L 02/07/19 11:00 Intake & Output 02/06/19 02/07/19 02/07/19 18:59 06:59 18:59 Intake Total 500 650 Balance 500 650 Weight 111.13 kg 110.4 kg Intake: IV 500 200 Dextrose 5%-0.45% NaCl 1, 500 200 000 ml @ 50 mls/hr IV . Q20H [facility] Rx#:[id number] Intake, IV Titration 50 Amount cefTRIAXone 1 gm In 50 Sodium Chloride 0.9% 50 ml @ 100 mls/hr IVPB Q24HR [facility] Rx#:[id number] Oral 400 Other: Voiding Method Toilet Toilet # Voids 1 - Exam Physical Exam: Revealed a 38-year-old female pleasant, looks chronically ill. Head: Atraumatic normocephalic. HEENT:[Neck is supple.] [No neck masses.] [No thyromegaly.] [No JVD.] No stridor. Chest: [Diminished breath sounds and dullness on the left side, however right side is clear. No crackles or rhonchi or wheezes. Cardiac Exam: [Normal S1 and S2, no S3 gallop, no murmur.] Abdomen: [Obese, difficult to assess for abdominal masses because of obesity. Soft, nontender, no rebound, no guarding, normal bowel sounds.] Extremities: [No clubbing, 2+ bipedal edema, no cyanosis.] Neurological Exam: [No focal neurologic deficit.] Alert and oriented 3. Psychiatric: Normal mood affect and normal mental status examination. Skin: No rashes. Musculoskeletal: No deformities normal range of motion. - Labs CBC & Chem 7: 02/07/19 03:54 02/07/19 03:54 Labs: Abnormal Lab Results - Last 24 Hours (Table) 02/06/19 02/06/19 02/06/19 Range/Units :: 15:00 WBC 12.7 H (3.8-10.6) k/uL Hgb 10.6 L (11.4-16.0) gm/dL Hct 33.6 L (34.0-46.0) % MCV 76.6 L (80.0-100.0) fL MCH 24.1 L (25.0-35.0) pg MCHC (31.0-37.0) g/dL Plt Count 726 H (150-450) k/uL Neutrophils # 9.8 H (1.3-7.7) k/uL Basophils # 0.3 H (0-0.2) k/uL ESR (0-20) mm/hr Creatinine 0.48 L (0.52-1.04) mg/dL Glucose 101 H (74-99) mg/dL Total Protein (6.3-8.2) g/dL Albumin 3.3 L (3.5-5.0) g/dL Amylase <30 L (30-110) U/L CA 125 Antigen (0.0-30.1) U/mL Free T4 (0.78-2.19) ng/dL Urine Appearance Cloudy H (Clear) Urine Protein 1+ H (Negative) Urine Ketones 1+ H (Negative) Urine Nitrite Positive H (Negative) Ur Leukocyte Esterase Moderate H (Negative) Urine WBC 20 H (0-5) /hpf Ur Squamous Epith Cells 5 H (0-4) /hpf Urine Bacteria Many H (None) /hpf Urine Mucus Many H (None) /hpf 1102/06/19 02/07/19 Range/Units 19:51 19:51 03:54 WBC 13.5 H (3.8-10.6) k/uL Hgb 9.3 L (11.4-16.0) gm/dL Hct 30.1 L (34.0-46.0) % MCV 76.1 L (80.0-100.0) fL MCH 23.4 L (25.0-35.0) pg MCHC 30.8 L (31.0-37.0) g/dL Plt Count 649 H (150-450) k/uL Neutrophils # (1.3-7.7) k/uL Basophils # (0-0.2) k/uL ESR 48 H (0-20) mm/hr Creatinine (0.52-1.04) mg/dL Glucose (74-99) mg/dL Total Protein (6.3-8.2) g/dL Albumin (3.5-5.0) g/dL Amylase (30-110) U/L CA 125 Antigen 124.0 H (0.0-30.1) U/mL Free T4 2.39 H (0.78-2.19) ng/dL Urine Appearance (Clear) Urine Protein (Negative) Urine Ketones (Negative) Urine Nitrite (Negative) Ur Leukocyte Esterase (Negative) Urine WBC (0-5) /hpf Ur Squamous Epith Cells (0-4) /hpf Urine Bacteria (None) /hpf Urine Mucus (None) /hpf 02/07/19 Range/Units 03:54 WBC (3.8-10.6) k/uL Hgb (11.4-16.0) gm/dL Hct (34.0-46.0) % MCV (80.0-100.0) fL MCH (25.0-35.0) pg MCHC (31.0-37.0) g/dL Plt Count (150-450) k/uL Neutrophils # (1.3-7.7) k/uL Basophils # (0-0.2) k/uL ESR (0-20) mm/hr Creatinine 0.49 L (0.52-1.04) mg/dL Glucose 103 H (74-99) mg/dL Total Protein 5.3 L (6.3-8.2) g/dL Albumin 2.6 L (3.5-5.0) g/dL Amylase (30-110) U/L CA 125 Antigen (0.0-30.1) U/mL Free T4 (0.78-2.19) ng/dL Urine Appearance (Clear) Urine Protein (Negative) Urine Ketones (Negative) Urine Nitrite (Negative) Ur Leukocyte Esterase (Negative) Urine WBC (0-5) /hpf Ur Squamous Epith Cells (0-4) /hpf Urine Bacteria (None) /hpf Urine Mucus (None) /hpf Microbiology - Last 24 Hours (Table) 02/06/19 19:30 Gram Stain - Preliminary Pleural Fluid Body Fluid Culture - Preliminary 02/06/19 19:30 Acid Fast Bacilli Culture - Preliminary Pleural Fluid 02/06/19 19:30 Fungal Culture - Preliminary Pleural Fluid Assessment and Plan Assessment: Impression: 1 left-sided pleural effusion, 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 Patient was noted to have significantly elevated CEA 125 and her pelvic ultrasound is pointing to a large ovarian mass most likely ovarian malignancy. 2 status post left-sided thoracentesis, however considering the rapidly acute ablation of the fluid, I recommended pigtail catheter placement by interventional radiology. 3 possible pericardial effusion, repeat echocardiogram will be done in a.m. 4 acute urinary tract infection 5 chronic constipation, thyroid studies have been ordered. 6 history of anxiety and depression. Recommendation: Left-sided thoracentesis was performed and the fluid was sent for different diagnostic studies. Left-sided pigtail catheter to be placed today by interventional radiology Consult INCOME TAX INVESTIGATOR for evaluation of ovarian mass. Agree with Rocephin for urinary tract infection Ultrasound of the abdomen and pelvis was noted, and again it seems to be pointing to possible ovarian cancer. Oncology consultation. We will continue to follow. Time with Patient: Less than 30
--- NOTE | 2019-02-07 13:19 | CT ---
EXAMINATION TYPE: CT chest tube insertion DATE OF EXAM: 02/07/2019 COMPARISON: Chest x-ray 02/07/2019 HISTORY: Large left pleural effusion CT DLP: 928 mGycm The procedure is discussed with the patient, the risks, complications, benefits and alternatives, wer e discussed and any questions were answered. Informed consent was obtained. The patient is placed l ateral on the CT table, prepped and draped in the usual sterile fashion. Utilizing a 22-gauge Chiba needle access into the left pleural space was achieved and there is conver raven to an O.035 system. There is placement O.035 guidewire and serial dilation to 8 Kinyarwanda with plac ement of an 8 Kinyarwanda drainage catheter over the guidewire. Repeat imaging demonstrated ideal placemen t catheter. Small amount of yellow to hong serous fluid was aspirated. Pathology pending. All cher-ae heights ents of maximal barrier and sterile technique were utilized. The patient remained stable throughout the procedure with no immediate postprocedural complication. IMPRESSION: 1. Successful CT guided left chest tube placement for large pleural effusion.
[2019-02-07] MEDS: KETOROLAC 30 MG/ML 1 ML VIAL IVP PRN ×2 (13:48→20:39)
--- NOTE | 2019-02-07 13:57 | US ---
EXAMINATION TYPE: US pelvic complete DATE OF EXAM: 02/07/2019 COMPARISON: NONE CLINICAL HISTORY: 38-year-old female possible ovarian malignancy. Irregular cycles, 0 TECHNIQUE: Transabdominal sonographic images of the pelvis were acquired. Patient refused transvagina l exam. Date of LMP: 2 months ago FINDINGS: EXAM MEASUREMENTS: Uterus: Limited visualization. Heterogeneous myometrium. 7.1 x 4.5 x 6.3 cm Endometrial Stripe: 0.8 cm, limited visualization. No gross abnormal mobility. Bilateral ovaries could not be visualized in the bilateral adnexa are not well evaluated due to the p resence of a large pelvic mass. Deputy County Counsel notes: 19.9 x 13.7 x 24.1cm pelvic mass seen superior to uterus and bladder extending i nto bilateral adnexa, possible minimal vascularity seen, unable to determine etiology. IMPRESSION: 1. Large heterogeneous pelvic mass located above the uterus measuring up to 24.1 cm obscuring the aida ateral adnexa. 2. Neither ovary could be discretely visualized. 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
--- NOTE | 2019-02-07 14:07 | P.PN ---
Subjective Progress Note Date: 02/07/19 Principal diagnosis: Pericardial effusion, minimal per today's transthoracic echocardiogram, large pleural effusion, leukocytosis, urinary tract infection. History of chronic constipation, anxiety/depression with recent loss of her mother. POD #1 status post thoracentesis with removal of 1.75 L serosanguinous fluid by Dr. Ortega The patient was seen and examined this morning in the ICU in no acute distress. She denied pain, stated her shortness of breath was better although she did require and increase in her FIO2. No new concerns. Objective - Vital Signs Vital signs: Vital Signs Temp 99.4 F 02/07/19 04:00 Pulse 95 02/07/19 11:00 Resp 32 H 02/07/19 11:00 BP 117/80 02/07/19 11:00 Pulse Ox 90 L 02/07/19 11:00 Intake & Output 02/06/19 02/07/19 02/07/19 18:59 06:59 18:59 Intake Total 500 650 Balance 500 650 Weight 111.13 kg 110.4 kg Intake: IV 500 200 Dextrose 5%-0.45% NaCl 1, 500 200 000 ml @ 50 mls/hr IV . Q20H [facility] Rx#:[id number] Intake, IV Titration 50 Amount cefTRIAXone 1 gm In 50 Sodium Chloride 0.9% 50 ml @ 100 mls/hr IVPB Q24HR [facility] Rx#:[id number] Oral 400 Other: Voiding Method Toilet Toilet # Voids 1 - Constitutional General appearance: Present: cooperative, no acute distress, obese - Respiratory Details: Lungs sounds diminished on the left side. Respirations even, nonlabored. Currently on 50% venti-mask with oxygen saturation 90%. Strong cough. - Cardiovascular Details: S1, S2 present. No distant heart sounds noted. No JVD. Tachycardic but regular rate and rhythm, sinus tach on telemetry. Palpable peripheral pulses bilaterally. 3+ edema to bilateral lower extremities. - Gastrointestinal Gastrointestinal Comment(s): Abdomen soft, non-tender, non-distended. Active bowel sounds x 4 quadrants. NPO for testing - Genitourinary Genitourinary Comment(s): Voiding - Integumentary Integumentary Comment(s): Skin is warm and dry - Neurologic Neurologic: Present: CNII-XII intact - Musculoskeletal Musculoskeletal: Present: strength equal bilaterally - Psychiatric Psychiatric Comment(s): Flat affect Psychiatric: Present: A&O x's 3 - Allied health notes Allied health notes reviewed: nursing - Labs CBC & Chem 7: 02/07/19 03:54 02/07/19 03:54 Labs: Abnormal Lab Results - Last 24 Hours (Table) 02/06/19 02/06/19 02/06/19 Range/Units 13:19 13:19 15:00 WBC 12.7 H (3.8-10.6) k/uL Hgb 10.6 L (11.4-16.0) gm/dL Hct 33.6 L (34.0-46.0) % MCV 76.6 L (80.0-100.0) fL MCH 24.1 L (25.0-35.0) pg MCHC (31.0-37.0) g/dL Plt Count 726 H (150-450) k/uL Neutrophils # 9.8 H (1.3-7.7) k/uL Basophils # 0.3 H (0-0.2) k/uL ESR (0-20) mm/hr Creatinine 0.48 L (0.52-1.04) mg/dL Glucose 101 H (74-99) mg/dL Total Protein (6.3-8.2) g/dL Albumin 3.3 L (3.5-5.0) g/dL Amylase <30 L (30-110) U/L CA 125 Antigen (0.0-30.1) U/mL Free T4 (0.78-2.19) ng/dL Urine Appearance Cloudy H (Clear) Urine Protein 1+ H (Negative) Urine Ketones 1+ H (Negative) Urine Nitrite Positive H (Negative) Ur Leukocyte Esterase Moderate H (Negative) Urine WBC 20 H (0-5) /hpf Ur Squamous Epith Cells 5 H (0-4) /hpf Urine Bacteria Many H (None) /hpf Urine Mucus Many H (None) /hpf 02/06/19 02/06/19 02/07/19 Range/Units 19:51 19:51 03:54 WBC 13.5 H (3.8-10.6) k/uL Hgb 9.3 L (11.4-16.0) gm/dL Hct 30.1 L (34.0-46.0) % MCV 76.1 L (80.0-100.0) fL MCH 23.4 L (25.0-35.0) pg MCHC 30.8 L (31.0-37.0) g/dL Plt Count 649 H (150-450) k/uL Neutrophils # (1.3-7.7) k/uL Basophils # (0-0.2) k/uL ESR 48 H (0-20) mm/hr Creatinine (0.52-1.04) mg/dL Glucose (74-99) mg/dL Total Protein (6.3-8.2) g/dL Albumin (3.5-5.0) g/dL Amylase (30-110) U/L CA 125 Antigen 124.0 H (0.0-30.1) U/mL Free T4 2.39 H (0.78-2.19) ng/dL Urine Appearance (Clear) Urine Protein (Negative) Urine Ketones (Negative) Urine Nitrite (Negative) Ur Leukocyte Esterase (Negative) Urine WBC (0-5) /hpf Ur Squamous Epith Cells (0-4) /hpf Urine Bacteria (None) /hpf Urine Mucus (None) /hpf 02/07/19 Range/Units 03:54 WBC (3.8-10.6) k/uL Hgb (11.4-16.0) gm/dL Hct (34.0-46.0) % MCV (80.0-100.0) fL MCH (25.0-35.0) pg MCHC (31.0-37.0) g/dL Plt Count (150-450) k/uL Neutrophils # (1.3-7.7) k/uL Basophils # (0-0.2) k/uL ESR (0-20) mm/hr Creatinine 0.49 L (0.52-1.04) mg/dL Glucose 103 H (74-99) mg/dL Total Protein 5.3 L (6.3-8.2) g/dL Albumin 2.6 L (3.5-5.0) g/dL Amylase (30-110) U/L CA 125 Antigen (0.0-30.1) U/mL Free T4 (0.78-2.19) ng/dL Urine Appearance (Clear) Urine Protein (Negative) Urine Ketones (Negative) Urine Nitrite (Negative) Ur Leukocyte Esterase (Negative) Urine WBC (0-5) /hpf Ur Squamous Epith Cells (0-4) /hpf Urine Bacteria (None) /hpf Urine Mucus (None) /hpf Microbiology - Last 24 Hours (Table) 02/06/19 19:30 Gram Stain - Preliminary Pleural Fluid Body Fluid Culture - Preliminary 02/06/19 19:30 Acid Fast Bacilli Culture - Preliminary Pleural Fluid 02/06/19 19:30 Fungal Culture - Preliminary Pleural Fluid - Imaging and Cardiology Chest x-ray: report reviewed, image reviewed Assessment and Plan Assessment: 1. Large pleural effusion, status post removal of 1.75 L serosanguinous fluid removed by Dr. Ortega 2. Trivial pericardial effusion 3. Large complex solid cystic mass filling the abdomen extending to the LUQ, possible ovarian cancer, CA125 antigen 124 4. Leukocytosis 5. Urinary tract infection 6. Chronic constipation 7. Anxiety/depression with recent loss of her mother Plan: 1. No surgical intervention at this time. 2. Pleural fluid management per pulmonology. Agree with pigtail catheter p lacement. 3. Wean O2 as tolerated. Encourage incentive spirometry use 10 x every hour. 4. Increase activity as tolerated. 5. 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 Medical management of other comorbidities per primary care 7. Will continue to see on an as-needed. Please call us with any questions Time with Patient: Greater than 30
[2019-02-07] MEDS: SERTRALINE 50 MG TAB PO SCH (14:35)
[2019-02-07] MEDS: DEXTROSE 5%-0.45% NACL 1,000 ML IV SCH (17:10)
--- NOTE | 2019-02-07 17:10 | P.OBCN ---
History of Present Illness Consult date: 02/07/19 Reason for consult: pelvic mass Chief complaint: Pleural and pericardial effusion History of present illness: The history is as outlined in the chart. She is a patient who presented to her primary care doctor with complaints of increasing shortness of breath. She was ultimately found to have a pleural effusion and subsequent pericardial effusion and was admitted to the ICU. She has undergone pleurocentesis and cytology is pending at this time. In the meantime, she has been found with a very large pelvic mass measuring 19.9 x 13.7 x 24.1 cm which is both cystic and solid in nature. There additionally is some abdominal ascites present. CA-125 is elevated at 124.0. 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 Regardless of the presence of malignancy, the size of the pelvic mass warrants removal. The patient has been unaware of this mass until this recent admission. From a gynecologic perspective, she reports that she has a long-standing history of cycle irregularity and no other significant vaginal symptoms. She is a 0 para 0. Obstetrical history: Gynecologic history: Unremarkable with no history of any infections to include STDs. The patient reports that she's not had a Pap smear in perhaps 5 years time but did have one scheduled for next week. Review of Systems Review of systems is confined to history of present illness. Past Medical History Past Medical History: No Reported History History of Any Multi-Drug Resistant Organisms: None Reported Past Surgical History: Orthopedic Surgery Additional Past Surgical History / Comment(s): Ankle surgery for left broken ankle, with pins placed Past Psychological History: Anxiety, Depression Additional Psychological History / Comment(s): Lost her mother recently Smoking Status: Never smoker Past Alcohol Use History: None Reported Past Drug Use History: None Reported - Past Family History Mother Family Medical History: Coronary Artery Disease (CAD) Additional Family Medical History / Comment(s): at age 62-bad valve- pacemaker Father Family Medical History: Cancer Additional Family Medical History / Comment(s): Testicular cancer Medications and Allergies Home Medications Medication Instructions Recorded Confirmed Type Docusate [Colace] 100 mg PO HS 02/06/19 02/06/19 History Famotidine [Pepcid] 40 mg PO BID 02/06/19 02/06/19 History Ibuprofen [Motrin Ib] 800 mg PO TID PRN 02/06/19 02/06/19 History Ondansetron [Zofran ODT] 4 mg PO QID 02/06/19 02/06/19 History Sertraline [Zoloft] 50 mg PO DAILY 02/06/19 02/06/19 History Allergies Allergy/AdvReac Type Severity Reaction Status Date / Time No Known Allergies Allergy Verified 02/06/19 15:40 Exam Vital Signs Temp Pulse Pulse Resp BP BP Pulse Ox 02/07/19 15:00 83 12 104/66 96 02/07/19 14:30 89 13 100/69 95 02/07/19 14:00 95 22 108/70 94 L 02/07/19 13:30 93 35 H 105/71 94 L 02/07/19 13:15 95 24 102/69 93 L 02/07/19 13:00 96 27 H 100/63 93 L 02/07/19 11:30 92 39 H 124/83 90 L 02/07/19 11:00 95 32 H 117/80 90 L 02/07/19 10:30 90 38 H 115/68 92 L 02/07/19 10:00 95 39 H 122/84 93 L 02/07/19 09:30 107 H 40 H 131/87 91 L 02/07/19 09:00 114 H 35 H 125/75 92 L 02/07/19 08:30 105 H 28 H 119/76 91 L 02/07/19 08:00 101 H 30 H 120/83 94 L 02/07/19 07:30 108 H 27 H 121/81 86 L 02/07/19 07:00 107 H 39 H 128/82 96 02/07/19 06:30 102 H 24 124/88 02/07/19 06:00 102 H 30 H 118/82 94 L 02/07/19 05:30 105 H 36 H 132/88 02/07/19 05:00 104 H 36 H 119/77 02/07/19 04:30 106 H 46 H 115/80 02/07/19 04:00 99.4 F 109 H 40 H 113/72 95 02/07/19 03:30 107 H 38 H 121/80 96 02/07/19 03:00 96 49 H 127/82 02/07/19 02:30 128 H 55 H 128/86 02/07/19 02:00 102 H 24 99/72 02/07/19 01:30 106 H 27 H 118/80 02/07/19 01:00 110 H 41 H 131/82 02/07/19 00:30 106 H 42 H 125/81 99 02/07/19 00:00 99 F 104 H 30 H 115/86 98 02/06/19 23:38 105 H 29 H 119/86 94 L 02/06/19 23:30 108 H 35 H 111/77 91 L 02/06/19 23:00 107 H 46 H 118/80 02/06/19 22:30 105 H 35 H 127/78 02/06/19 22:00 109 H 49 H 114/77 92 L 02/06/19 21:30 105 H 55 H 129/87 02/06/19 21:00 108 H 24 134/88 02/06/19 20:30 105 H 38 H 89 L 02/06/19 20:00 98 39 H 118/67 02/06/19 19:30 105 H 64 H 115/73 92 L 02/06/19 19:11 118 H 32 H 02/06/19 17:34 98.2 F 108 H 26 H 134/88 97 02/06/19 17:29 24 Intake and Output 02/07/19 02/07/19 02/07/19 06:59 14:59 22:59 Intake Total 450 1200 50 Output Total 656 1060 Balance 450 544 -1010 Intake: IV 450 350 50 Dextrose 5%-0.45% NaCl 1, 450 350 50 000 ml @ 50 mls/hr IV . Q20H [facility] Rx#:[id number] Intake, IV Titration 50 Amount cefTRIAXone 1 gm In 50 Sodium Chloride 0.9% 50 ml @ 100 mls/hr IVPB Q24HR [facility] Rx#:[id number] Oral 800 Output: Drainage 470 1060 Left Posterior Chest 470 1060 Urine 185 Stool 1 Other: # Voids 1 1 Weight 110.4 kg In general, this is a well-developed, well-nourished white female who appears comfortable in bed. Examination is limited to her abdominal examination which demonstrates a very large firm though not hard mass filling most of the pelvis and to just above the umbilicus. There is no fluid wave or any other abnormal findings noted at this time. Pelvic examination is deferred as it will not add to the overall picture or disposition. Results Result Diagrams: 02/07/19 03:54 02/07/19 03:54 Abnormal Lab Results - Last 24 Hours (Table) 02/06/19 02/06/19 02/07/19 Range/Units 19:51 19:51 03:54 WBC 13.5 H (3.8-10.6) k/uL Hgb 9.3 L (11.4-16.0) gm/dL Hct 30.1 L (34.0-46.0) % MCV 76.1 L (80.0-100.0) fL MCH 23.4 L (25.0-35.0) pg MCHC 30.8 L (31.0-37.0) g/dL Plt Count 649 H (150-450) k/uL ESR 48 H (0-20) mm/hr Creatinine (0.52-1.04) mg/dL Glucose (74-99) mg/dL Total Protein (6.3-8.2) g/dL Albumin (3.5-5.0) g/dL CA 125 Antigen 124.0 H (0.0-30.1) U/mL Free T4 2.39 H (0.78-2.19) ng/dL 02/07/19 Range/Units 03:54 WBC (3.8-10.6) k/uL Hgb (11.4-16.0) gm/dL Hct (34.0-46.0) % MCV (80.0-100.0) fL MCH (25.0-35.0) pg MCHC (31.0-37.0) g/dL Plt Count (150-450) k/uL ESR (0-20) mm/hr Creatinine 0.49 L (0.52-1.04) mg/dL Glucose 103 H (74-99) mg/dL Total Protein 5.3 L (6.3-8.2) g/dL Albumin 2.6 L (3.5-5.0) g/dL CA 125 Antigen (0.0-30.1) U/mL Free T4 (0.78-2.19) ng/dL Microbiology - Last 24 Hours (Table) 02/06/19 13:19 Blood Culture - Preliminary Blood No Growth after 24 hours 02/06/19 19:30 Gram Stain - Preliminary Pleural Fluid Body Fluid Culture - Preliminary 02/06/19 19:30 Acid Fast Bacilli Culture - Preliminary Pleural Fluid 02/06/19 19:30 Fungal Culture - Preliminary Pleural Fluid Assessment and Plan (1) Ovarian cystic mass Current Visit: Yes Status: Acute Code(s): N83.209 - UNSPECIFIED OVARIAN CYST, UNSPECIFIED SIDE SNOMED Code(s): 41527658 (2) Pericardial effusion Current Visit: Yes Status: Acute Code(s): I31.3 - PERICARDIAL EFFUSION (NONINFLAMMATORY) SNOMED Code(s): 072348318 (3) Pleural effusion Current Visit: Yes Status: Acute Code(s): J90 - PLEURAL EFFUSION, NOT ELSEWHERE CLASSIFIED SNOMED Code(s): 32556789 Plan: Given the findings of a very large ovarian mass with an elevated CA-125, the likelihood of malignancy is relatively high. This is increased when he consider the effusions that are present. The results of the cytology should confirm or refute, at least initially, metastatic malignancy. In either case, the size of the mass warrants removal and would best be carried out in the hands of a RETORT PRESS OPERATOR oncologist for the possibility of debulking as well as lymph node sampling or lymphadenectomy. I have discussed this case with Dr. Rabbi Gibson in the [facility] system who is a RETORT PRESS OPERATOR oncologist. He agrees that the mass deserves removal. As the patient is not currently in a position to be discharged and followed up as an outpatient, he agrees to have the patient transferred to [facility] for further evaluation and treatment. I will discuss the case further with the patient's primary care doctor, Dr. Moreno. Dr. Gibson has requ ested that any imaging studies be placed on discs and accompany the patient during transfer. Timing of transfer is fluid, either tonight or tomorrow morning. I have discussed these findings at some length with the patient and her family who understand and agree with the plan as it has been outlined.
--- NOTE | 2019-02-07 19:51 | XR ---
EXAMINATION TYPE: XR chest 1V portable DATE OF EXAM: 02/07/2019 COMPARISON: Today HISTORY: Short of breath TECHNIQUE: Single frontal view of the chest is obtained. FINDINGS: There are large bilateral pleural effusions and much larger on the left side. There is luis ost complete opacification left hemithorax. Heart is enlarged. There is left-sided pigtail drainage c atheter over the left lower lobe. IMPRESSION: There is left-sided hydrothorax with slight tension. This is similar to exam this sandra g. Heart failure is possible. Right pleural effusion appears increased compared to exam this morning. Left pleural effusion improved slightly.
[2019-02-07] MEDS ORDERED: DOCUSATE 100 MG CAP PO SCH (21:00)
--- NOTE | 2019-02-07 23:37 | P.PN ---
Subjective Progress Note Date: 02/07/19 Principal diagnosis: Here for left sided pleural effusion. No significant chest pain. Left sided pleural effusion with ovarian mass. There was significant dyspnea noted. The patient feels much more comfortable. No significant fever or chills are stated. No voiding difficulties noted. Objective - Vital Signs Vital signs: Vital Signs Temp 99.4 F 02/07/19 04:00 Pulse 95 02/07/19 11:00 Resp 32 H 02/07/19 11:00 BP 117/80 02/07/19 11:00 Pulse Ox 90 L 02/07/19 11:00 Intake & Output 02/06/19 02/07/19 02/07/19 18:59 06:59 18:59 Intake Total 500 650 Balance 500 650 Weight 111.13 kg 110.4 kg Intake: IV 500 200 Dextrose 5%-0.45% NaCl 1, 500 200 000 ml @ 50 mls/hr IV . Q20H [facility] Rx#:[id number] Intake, IV Titration 50 Amount cefTRIAXone 1 gm In 50 Sodium Chloride 0.9% 50 ml @ 100 mls/hr IVPB Q24HR [facility] Rx#:[id number] Oral 400 Other: Voiding Method Toilet Toilet # Voids 1 - Constitutional General appearance: Present: no acute distress, obese - EENT Eyes: Absent: abnormal pupil - Respiratory Respiratory: left: diminished, rhonchi - Cardiovascular Rhythm: regular Heart sounds: normal: S1, S2 Abnormal Heart Sounds: Absent: S3 Gallop - Gastrointestinal General gastrointestinal: Present: soft. Absent: tenderness - Psychiatric Psychiatric: Present: A&O x's 3 - Labs CBC & Chem 7: 02/07/19 03:54 02/07/19 03:54 Labs: Abnormal Lab Results - Last 24 Hours (Table) 02/06/19 02/06/19 02/06/19 Range/Units : 13: 15:00 WBC 12.7 H (3.8-10.6) k/uL Hgb 10.6 L (11.4-16.0) gm/dL Hct 33.6 L (34.0-46.0) % MCV 76.6 L (80.0-100.0) fL MCH 24.1 L (25.0-35.0) pg MCHC (31.0-37.0) g/dL Plt Count 726 H (150-450) k/uL Neutrophils # 9.8 H (1.3-7.7) k/uL Basophils # 0.3 H (0-0.2) k/uL ESR (0-20) mm/hr Creatinine 0.48 L (0.52-1.04) mg/dL Glucose 101 H (74-99) mg/dL Total Protein (6.3-8.2) g/dL Albumin 3.3 L (3.5-5.0) g/dL Amylase <30 L (30-110) U/L CA 125 Antigen (0.0-30.1) U/mL Free T4 (0.78-2.19) ng/dL Urine Appearance Cloudy H (Clear) Urine Protein 1+ H (Negative) Urine Ketones 1+ H (Negative) Urine Nitrite Positive H (Negative) Ur Leukocyte Esterase Moderate H (Negative) Urine WBC 20 H (0-5) /hpf Ur Squamous Epith Cells 5 H (0-4) /hpf Urine Bacteria Many H (None) /hpf Urine Mucus Many H (None) /hpf 02/06/19 02/06/19 02/07/19 Range/Units 19:51 19:51 03:54 WBC 13.5 H (3.8-10.6) k/uL Hgb 9.3 L (11.4-16.0) gm/dL Hct 30.1 L (34.0-46.0) % MCV 76.1 L (80.0-100.0) fL MCH 23.4 L (25.0-35.0) pg MCHC 30.8 L (31.0-37.0) g/dL Plt Count 649 H (150-450) k/uL Neutrophils # (1.3-7.7) k/uL Basophils # (0-0.2) k/uL ESR 48 H (0-20) mm/hr Creatinine (0.52-1.04) mg/dL Glucose (74-99) mg/dL Total Protein (6.3-8.2) g/dL Albumin (3.5-5.0) g/dL Amylase (30-110) U/L CA 125 Antigen 124.0 H (0.0-30.1) U/mL Free T4 2.39 H (0.78-2.19) ng/dL Urine Appearance (Clear) Urine Protein (Negative) Urine Ketones (Negative) Urine Nitrite (Negative) Ur Leukocyte Esterase (Negative) Urine WBC (0-5) /hpf Ur Squamous Epith Cells (0-4) /hpf Urine Bacteria (None) /hpf Urine Mucus (None) /hpf 02/07/19 Range/Units 03:54 WBC (3.8-10.6) k/uL Hgb (11.4-16.0) gm/dL Hct (34.0-46.0) % MCV (80.0-100.0) fL MCH (25.0-35.0) pg MCHC (31.0-37.0) g/dL Plt Count (150-450) k/uL Neutrophils # (1.3-7.7) k/uL Basophils # (0-0.2) k/uL ESR (0-20) mm/hr Creatinine 0.49 L (0.52-1.04) mg/dL Glucose 103 H (74-99) mg/dL Total Protein 5.3 L (6.3-8.2) g/dL Albumin 2.6 L (3.5-5.0) g/dL Amylase (30-110) U/L CA 125 Antigen (0.0-30.1) U/mL Free T4 (0.78-2.19) ng/dL Urine Appearance (Clear) Urine Protein (Negative) Urine Ketones (Negative) Urine Nitrite (Negative) Ur Leukocyte Esterase (Negative) Urine WBC (0-5) /hpf Ur Squamous Epith Cells (0-4) /hpf Urine Bacteria (None) /hpf Urine Mucus (None) /hpf Microbiology - Last 24 Hours (Table) 02/06/19 19:30 Gram Stain - Preliminary Pleural Fluid Body Fluid Culture - Preliminary 02/06/19 19:30 Acid Fast Bacilli Culture - Preliminary Pleural Fluid 02/06/19 19:30 Fungal Culture - Preliminary Pleural Fluid Assessment and Plan (1) Dyspnea Current Visit: Yes Status: Acute Code(s): R06.00 - DYSPNEA, UNSPECIFIED SNOMED Code(s): 339218092 (2) Pericardial effusion Current Visit: Yes Status: Acute Code(s): I31.3 - PERICARDIAL EFFUSION (NONINFLAMMATORY) SNOMED Code(s): 284651365 (3) Pleural effusion Current Visit: Yes Status: Acute Code(s): J90 - PLEURAL EFFUSION, NOT ELSEWHERE CLASSIFIED SNOMED Code(s): 75303002 Plan: Status post thoracentesis. Probable malignancy from ovarian mass. Appreciate multiple consultants input. Prognosis is guarded. Time with Patient: Less than 30
--- NOTE | 2019-02-08 07:28 | P.PN ---
Subjective Progress Note Date: 02/08/19 Principal diagnosis: Sinus tachycardia This is a 38-year-old female patient was no significant past medical history who was referred to undergo an echocardiogram for further evaluation off fatigue and tiredness and shortness of breath. The echo revealed left pleural effusion wh ich was very large. Subsequently the patient underwent left pleurocentesis. We involved in her care for sinus tachycardia. Yesterday I did start the patient on small dose of metoprolol at 12.5 mg by mouth twice a day and that improved her heart rate. Blood pressure still stable. Unfortunately the patient was diagnosed was large pelvis mass felt to be cancer and she is in process of being transferred to [facility]. Objective - Vital Signs Vital signs: Vital Signs Temp 98.2 F 02/08/19 04:00 Pulse 90 02/08/19 05:00 Resp 20 02/08/19 05:00 BP 107/77 02/08/19 05:00 Pulse Ox 97 02/08/19 05:05 Intake & Output 02/07/19 02/08/19 02/08/19 18:59 06:59 18:59 Intake Total 1350 400 Output Total 2186 530 Balance -836 -130 Weight 110.4 kg Intake: IV 500 400 Dextrose 5%-0.45% NaCl 1, 500 400 000 ml @ 50 mls/hr IV . Q20H [facility] Rx#:[id number] Intake, IV Titration 50 Amount cefTRIAXone 1 gm In 50 Sodium Chloride 0.9% 50 ml @ 100 mls/hr IVPB Q24HR [facility] Rx#:[id number] Oral 800 Output: Chest Tube Drainage 170 Pleural Catheter Left 170 Posterior Chest Drainage 2000 310 Left Posterior Chest 2000 310 Urine 185 50 Stool 1 Other: Voiding Method Bedpan Bedpan # Voids 1 1 - Constitutional General appearance: Present: no acute distress - Respiratory Respiratory: right: CTA, left: diminished - Cardiovascular Rhythm: regular Heart sounds: normal: S1, S2 - Labs CBC & Chem 7: 02/07/19 03:54 02/07/19 03:54 Labs: Microbiology - Last 24 Hours (Table) 02/07/19 18:30 Urine Culture - Preliminary Urine,Voided 02/06/19 19:30 Acid Fast Bacilli Smear - Final Pleural Fluid Acid Fast Bacilli Culture - Preliminary 02/06/19 19:30 Gram Stain - Preliminary Pleural Fluid Body Fluid Culture - Preliminary 02/06/19 13:19 Blood Culture - Preliminary Blood No Growth after 24 hours Assessment and Plan Assessment: Assessment #1 left sided large pleurocentesis of unknown etiology at this point. Cancer to be ruled out. We will follow-up with the pathology. #2 large bulbous mass felt to be cancer Plan Continue the current medical regimen The patient is in process to be transferred to [facility]
--- NOTE | 2019-02-08 07:58 | P.DS ---
Providers Date of admission: 02/06/19 15:20 Attending physician: Jose Moreno Consults: 02/06/19 15:03 Consult Physician Stat Consulting Provider: Pete Little Consult Reason/Comments: Pericardial effusion Do you want consulting provider notified?: Yes Consult Physician Stat Consulting Provider: Du Yan Consult Reason/Comments: Pericardial effusion, pleural effusion Do you want consulting provider notified?: Yes 02/06/19 16:58 Consult Physician Routine Consulting Provider: Lamine Ortega Consult Reason/Comments: pleural effusion Do you want consulting provider notified?: Yes 02/07/19 11:52 Consult Physician Routine Consulting Provider: Sia Bermudez Consult Reason/Comments: Ovarian mass Do you want consulting provider notified?: Yes 02/07/19 12:04 Consult Physician Routine Consulting Provider: Brandno Mcgraw Consult Reason/Comments: OVARIAN CANCER? Do you want consulting provider notified?: Yes, Notify in am Primary care physician: Jose Moreno - Discharge Diagnosis(es) (1) Dyspnea Current Visit: Yes Status: Acute (2) Pericardial effusion Current Visit: Yes Status: Acute (3) Pleural effusion Current Visit: Yes Status: Acute Hospital Course: This is a discharge transfer summary a 38-year-old white female essentially admitted for left-sided pleural effusion. After significant workup she was found to have ovarian mass. She had significant thoracentesis and pigtail valve placed because of the amount of fluid emanating from her thoracic cavity. The patient, with discussion from gynecology is acceptable for transfer to [facility] for appropriate treatment. Patient is agreeable and once she is stable from ICU for transfer perspective, she will be sent to have [facility]. Patient Condition at Discharge: Serious Plan - Discharge Summary New Discharge Prescriptions: New Zolpidem [Ambien] 5 mg PO HS PRN tab PRN Reason: Insomnia Metoprolol Tartrate [Lopressor] 12.5 mg PO BID tab Ibuprofen [Motrin] 400 mg PO Q6HR PRN tab PRN Reason: Mild Pain Or Fever > 100.5 cefTRIAXone [Rocephin] 1 gm IVPB Q24HR vial Acetaminophen Tab [Tylenol] 650 mg PO Q6HR PRN tab PRN Reason: Mild Pain Or Fever > 100.5 Continue Sertraline [Zoloft] 50 mg PO DAILY Famotidine [Pepcid] 40 mg PO BID Docusate [Colace] 100 mg PO HS Ondansetron [Zofran ODT] 4 mg PO QID Ibuprofen [Motrin Ib] 800 mg PO TID PRN PRN Reason: Pain Discharge Medication List Docusate [Colace] 100 mg PO HS 02/06/19 [History] Famotidine [Pepcid] 40 mg PO BID 02/06/19 [History] Ibuprofen [Motrin Ib] 800 mg PO TID PRN 02/06/19 [History] Ondansetron [Zofran ODT] 4 mg PO QID 02/06/19 [History] Sertraline [Zoloft] 50 mg PO DAILY 02/06/19 [History] Acetaminophen Tab [Tylenol] 650 mg PO Q6HR PRN tab 02/08/19 [Rx] Ibuprofen [Motrin] 400 mg PO Q6HR PRN tab 02/08/19 [Rx] Metoprolol Tartrate [Lopressor] 12.5 mg PO BID tab 02/08/19 [Rx] Zolpidem [Ambien] 5 mg PO HS PRN tab 02/08/19 [Rx] cefTRIAXone [Rocephin] 1 gm IVPB Q24HR vial 02/08/19 [Rx] Follow up Appointment(s)/Referral(s): Jose Moreno MD [Primary Care Provider] - 1 Week Discharge Disposition: DC/[facility] INTERMEDIATE CARE FAC
[2019-02-08] MEDS ORDERED: FUROSEMIDE 10 MG/ML 4 ML VIAL IV STA (10:23)
[2019-02-08] MEDS ORDERED: ALTEPLASE 10 MG in SODIUM CHLORIDE 0.9% 100 ML IRRIGATION ONE (11:00)
[2019-02-08] MEDS ORDERED: LORazepam 2 MG/ML INJ IV STA (11:03)
[2019-02-08] MEDS ORDERED: PROPOFOL 10 MG/ML 20 ML VIAL IV ONE (11:14)
[2019-02-08] MEDS ORDERED: SUCCINYLCHOLINE CHLORIDE VIAL 200 MG/10 ML VIAL IV STA (11:15)
[2019-02-08] MEDS: PROPOFOL 1,000 MG in EMPTY BAG 1 BAG IV SCH ×2 (11:20→12:49)
--- NOTE | 2019-02-08 11:43 | XR ---
EXAMINATION TYPE: XR chest 1V portable DATE OF EXAM: 02/08/2019 COMPARISON: 02/07/2019 HISTORY: Shortness of breath TECHNIQUE: Single frontal view of the chest is obtained. FINDINGS: Air bronchograms are seen on the left within near complete opacification of the left hemit horax. There are overall low lung volumes with crowding of the pulmonary vasculature on the right and trace right pleural effusion. Cardiomediastinal silhouette is obscured. Left thoracostomy tube is si milar in position to the prior. IMPRESSION: . 1. Redemonstration of large left pleural effusion and consolidation with air bronchograms, similar to the prior of 02/07/2019 with overall stable placement of the left thoracostomy tube. 2. Low lung volumes with crowding of the coronary vasculature of the right and trace right pleural ef fusion.
[2019-02-08] MEDS ORDERED: SODIUM CHLORIDE 0.9% 1,000 ML IV ONE (11:45)
[2019-02-08 12:05] LABS: ABG HCO3 28 mmol/L (21-25); ABG Oxygen Saturation 97.6 % (94-97); ABG PCO2 42 mmHg (35-45); ABG PH 7.44 (7.35-7.45); ABG PO2 97 mmHg (83-108); ABG TCO2 29 mmol/L (19-24); Allen Test Performed? Yes
[2019-02-08] MEDS: SERTRALINE 50 MG TAB PO SCH (12:14)
[2019-02-08] MEDS: METOPROLOL TARTRATE 12.5 MG TAB PO SCH (12:14)
--- NOTE | 2019-02-08 12:23 | XR ---
EXAMINATION TYPE: XR chest 1V portable DATE OF EXAM: 02/08/2019 COMPARISON: 02/08/2019 HISTORY: intubation and central line placement TECHNIQUE: Single frontal view of the chest is obtained. FINDINGS: Endotracheal tube is noted with distal tip approximately 2.3 cm from the glo. NG tube is seen coursing towards the stomach. Left-sided pleural catheter is in place. Continued complete opacification left hemithorax with air br onchograms noted. Patchy right perihilar infiltrates persist. IMPRESSION: 1. As above.
[2019-02-08] MEDS: DEXTROSE 5%-0.45% NACL 1,000 ML IV SCH (12:25)
[2019-02-08 12:39] LABS: Glucose,Whole Blood 106 mg/dL (75-99)
[2019-02-08 12:41] VITALS: BP 88/56; PULSE 81; RESP 24; TEMP 99
--- NOTE | 2019-02-08 13:55 | US ---
EXAMINATION TYPE: US chest DATE OF EXAM: 02/08/2019 COMPARISON: NONE CLINICAL HISTORY: Markings for thoracentesis by pulmonary staff. Pleural effusion. Left chest tube pl acement 02/07/19 TECHNIQUE: Targeted ultrasound of the posterior lower right hemithorax EXAM MEASUREMENTS: Right Pleural Effusion pocket size: no significant fluid collection noted at this time Right side NOT marked for possible thoracentesis outside the dept. Pulmonologists are able to review the images in the patient?s EMR. IMPRESSIONS: No significant right pleural effusion.
--- NOTE | 2019-02-08 14:00 | P.PN ---
Subjective Progress Note Date: 02/08/19 Principal diagnosis: Large left pleural effusion, possible ovarian cancer. This is a 38-year-old female with no significant past medical history except for anxiety and depression, nonsmoker, patient has been seeing her primary care physician for the last few weeks with mostly complaints of musculoskeletal left- sided chest pain, shortness of breath, generalized weakness, increased fluid retention and swelling in her lower extremities, intermittent episodes of vague abdominal pains, nausea and vomiting. Patient had a recent loss of her mother secondary to heart disease, and patient was placed on antidepressants. Patient was sent for a transthoracic echocardiogram as part of the workup for her symptoms, and she was told that she had a large pleural effusion and a large p ericardial effusion hence she was sent to the emergency room for further evaluation. EKG in the ER showed sinus tachycardia with right bundle branch block pattern. Chest x-ray showed significant left sided pleural effusion with mediastinal shift to the right. Urinalysis was positive for nitrates, protein and ketones and leukocytes esterase. Obviously there was evidence of pyuria and bacteriuria in the urine. Patient was also noted to have elevated platelets of 726. She had normal BNP level. Patient was seen initially by cardiac surgery, and I was notified by the cardiac surgeon about her pleural effusion, hence I made arrangements to transfer the patient to the ICU from the monitor bed on , and I came in and performed a left-sided thoracentesis. 1750 mL of serosanguineous fluid removed from the left pleural space, and the fluid was sent for different diagnostic studies. In the meantime I have ordered some laboratory studies including thyroid studies, BARBARA, sed rate, CA 125, and a pelvic ultrasound to be done tomorrow. Patient had no previous history of recent pulmonary infection she had no recent history of cardiac issues patient has been complaining of multiple constitutional symptoms as noted above. For her abnormal urinalysis, patient was placed on Rocephin. Cultures of the urine are pending. Patient was reevaluated today on 02/07/2019, patient remains in the ICU, she underwent large-volume left sided thoracentesis yesterday, 1750 mL of fluid were drained from the left pleural space. Patient had repeat chest x-ray today, and most of the fluid seems to be coming back, hence I recommended pigtail catheter placement by interventional radiology, and the patient had an ultrasound of the abdomen and pelvis, ultrasound showed a large complex solid cystic mass filling the abdomen extending up to the left upper quadrant and causing limitation in the visualization of abdominal structures felt to be ovarian neoplasm unless proven otherwise. She was also noted to have a mild abdominal ascites. Most likely we are dealing with a picture of ovarian cancer, and I went ahead and recommended ELECTRICAL TIMING DEVICE CALIBRATOR evaluation of the patient, I have also recommended pigtail catheter placement since the fluid seems to be coming back within a very short period of time. Patient may eventually require surgical placement of catheter by thoracic surgery this will be decided upon in the near future. Patient's CEA 125 was noted to be extremely elevated, her thyroid studies are basically unremarkable, CA-125 antigen was 124. CBC is relatively normal hemoglobin is 9.3 platelets are high 649 clinically the patient is feeling a bit better, however overnight she desaturated and she is now on a 50% Ventimask. Patient was reevaluated today on 02/08/2019, patient remains in the ICU, her O2 saturation has deteriorated overnight, patient was switched to a high flow nasal cannula, and she was later switched to airvo at 50% FiO2 and 50 L/m flow. However her O2 saturation was noted to be extremely marginal. And the patient was quite tachypneic resting rate in the 50s. Tried the patient on BiPAP, remained tachypneic, and she was having mostly shallow breathing. Chest x-ray showed complete opacification of the left lung, drainage from the left sided chest tube is minimal, and considering the patient is being transferred to [facility], I felt the patient needed to be stabilized to be transferred safely to [facility] today via chopper. Then discussed her condition with her and with her family members at bedside, and explained to her that it would be best to place her on mechanical ventilation. Her pulmonary status is extremely poor and marginal. And I have asked the thoracic surgery staff on the case to consider TPA via the pigtail catheter to hopefully improve drainage from the left sided chest tube. And this was done before transfer. In the meantime I went ahead and intubated the patient, and placed a number of lines including arterial line and central line. I even bronchoscope the patient, and there was no evidence of any endobronchial pathology. There was no evidence of any purulent secretions, and no evidence of any endobronchial tumors or mucous plugs. This was done as soon as the patient was intubated. Hence no lavage was needed, and no tissue was obtained. And I have cleared the patient from the pulmonary perspective to be transferred to [facility]. Objective - Vital Signs Vital signs: Vital Signs Temp 99 F 02/08/19 08:00 Pulse 81 02/08/19 12:30 Resp 24 02/08/19 12:30 BP 88/56 02/08/19 12:30 Pulse Ox 100 02/08/19 12:30 Intake & Output 02/07/19 02/08/19 02/08/19 18:59 06:59 18:59 Intake Total 8943 390 7028.148 Output Total 2186 530 1430 Balance -836 -130 -209.852 Weight 110.4 kg Intake: IV 500 400 Dextrose 5%-0.45% NaCl 1, 500 400 000 ml @ 50 mls/hr IV . Q20H [facility] Rx#:[id number] Intake, IV Titration 50 1220.148 Amount Dextrose 5%-0.45% NaCl 1, 200 000 ml @ 50 mls/hr IV . Q20H [facility] Rx#:[id number] Propofol 1,000 mg In 20.148 Empty Bag 1 bag @ Titrate IV .Q0M [facility] Rx#: [id number] Sodium Chloride 0.9% 1, 1000 000 ml @ 999 mls/hr IV . Q1H1M ONE Rx#:[id number] cefTRIAXone 1 gm In 50 Sodium Chloride 0.9% 50 ml @ 100 mls/hr IVPB Q24HR [facility] Rx#:[id number] Oral 800 Output: Chest Tube Drainage 170 Pleural Catheter Left 170 Posterior Chest Drainage 2000 310 130 Left Posterior Chest 1999 310 130 Urine 221 44 6207 Stool 1 Other: Voiding Method Bedpan Bedpan # Voids 1 1 ABP, PAP, CO, CI - Last Documented Arterial Blood Pressure 86/57 - Exam Physical Exam: Revealed a 38-year-old female, tachypneic, on BiPAP. Restoril rate is about 50. Head: Atraumatic normocephalic. HEENT:[Neck is supple.] [No neck masses.] [No thyromegaly.] [No JVD.] No strid or. Dry mucous membranes. Chest: [Diminished breath sounds and dullness on the left side, bronchial breath sounds noted in the left side also. Right side is relatively unremarkable. Left-sided pigtail catheter is noted. Cardiac Exam: [Normal S1 and S2, no S3 gallop, no murmur.] Abdomen: [Obese, difficult to assess for abdominal masses because of obesity. Soft, nontender, no rebound, no guarding, normal bowel sounds.] Extremities: [No clubbing, 1+ bipedal edema, no cyanosis.] Neurological Exam: [No focal neurologic deficit.] Alert and oriented 3. Psychiatric: Normal mood affect and normal mental status examination. Skin: No rashes. Musculoskeletal: No deformities normal range of motion. - Labs CBC & Chem 7: 02/07/19 03:54 02/07/19 03:54 Labs: Abnormal Lab Results - Last 24 Hours (Table) 02/08/19 02/08/19 Range/Units 12:04 12:37 ABG HCO3 28 H (21-25) mmol/L ABG Total CO2 29 H (19-24) mmol/L ABG O2 Saturation 97.6 H (94-97) % POC Glucose (mg/dL) 106 H (75-99) mg/dL Microbiology - Last 24 Hours (Table) 02/07/19 18:30 Urine Culture - Preliminary Urine,Voided 02/06/19 19:30 Acid Fast Bacilli Smear - Final Pleural Fluid Acid Fast Bacilli Culture - Preliminary 02/06/19 19:30 Gram Stain - Preliminary Pleural Fluid Body Fluid Culture - Preliminary 02/06/19 13:19 Blood Culture - Preliminary Blood No Growth after 24 hours Assessment and Plan Assessment: Impression: 1: Acute hypoxic respiratory failure secondary to left-sided pleural effusion, 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 2 status post left-sided thoracentesis, and status post pigtail catheter plac ement however significant opacification remains noted in the left lung. Hence I recommended TPA infusion via the pigtail catheter and this was done before transfer. 3 minimal pericardial effusion noted on echocardiogram. 4 acute urinary tract infection 5 chronic constipation, negative thyroid studies. 6 history of anxiety and depression. Recommendation: Patient was intubated and placed on mechanical ventilation. The plan is to stabilize her enough for transfer to [facility]. In the meantime I went ahead and placed an arterial line, central line, and we have infused sent TPA through the pigtail catheter hoping to liberalize the left lung from residual pleural effusion. Status post left-sided thoracentesis and status post pigtail catheter placement done by interventional radiology. Status post multiple lines placement including central line, arterial line, and attempts to place a left subclavian and left IJ, but these attempts were unsuccessful. Status post TPA infusion via pigtail catheter done by thoracic surgery on the case. Continue Rocephin for urinary tract infection Discussed her condition with her primary care physician, and apparently the recommendation from COAL PULVERIZING OPERATOR staff is to transfer the patient to [facility]. And this would be done. Critical care time is 40 minutes not including the time spent on procedures done today. Family updated on her condition and the plans to transfer. Also updated on all the procedures done prior to transfer. Time with Patient: Greater than 30
--- NOTE | 2019-02-08 14:08 | PCN ---
PROCEDURE NOTE OPERATIVE REPORT: Intubation. PREOPERATIVE DIAGNOSES: Acute hypoxic respiratory failure secondary to massive left-sided pleural effusion and suspected ovarian cancer with metastasis. POSTOPERATIVE DIAGNOSES: Acute hypoxic respiratory failure secondary to massive left-sided pleural effusion and suspected ovarian cancer with metastasis. ANESTHESIA USED: Patient was given 50 mg of propofol, 4 mg of morphine, and 75 mg of succinylcholine. PROCEDURE: The patient was placed in a supine position, she was Ambu bagged, and we monitored the O2 saturation continuously. Then after adequate sedation and paralysis using succinylcholine, a GlideScope was used, size 4 blade was used and the tongue was depressed, the vocal cords were visualized, and a size 7.5 endotracheal tube was inserted with direct visualization of the vocal cords. As we passed the vocal cords, the stylet was removed, and the endotracheal tube was advanced further down. Cuff was inflated, there was color change, and there was adequate placement of the endotracheal tube based on the clinical findings and based on the chest x-ray. Procedure was well tolerated, no evidence of any immediate complication. MMODL / IJN: [id number] /
--- NOTE | 2019-02-08 14:14 | PCN ---
PROCEDURE NOTE OPERATIVE REPORT: Attempting placement of the left subclavian and left internal jugular central line. PREOPERATIVE DIAGNOSIS: Respiratory failure. POSTOPERATIVE DIAGNOSIS: Respiratory failure. ANESTHESIA USED: 2 mL of 1% lidocaine. PROCEDURE: The patient was placed in the Trendelenburg position, the area of the left subclavian was anesthetized using lidocaine. Then using the infraclavicular approach, the left subclavian vein was easily cannulated with one stick. A guidewire was also placed easily. The area around the guidewire was dilated. Then a dilator was used and there was easy dilatation. Then a triple-lumen catheter was attempted to be inserted over the guidewire, however, it was rechecked point have way into the placement wherein there was some resistance. Could not pass the triple-lumen catheter over the guidewire all the way. Hence, no further attempts were made. The triple-lumen catheter was removed. The guidewire was removed and then we moved to the left internal jugular area. The area was locally anesthetized, then using the posterior approach it was attempted to cannulate the left internal jugular vein, but multiple attempts failed, then no more attempts were tried. Chest x-ray showed no evidence of complications. Then we went ahead and placed a right femoral triple-lumen catheter. MMODL / IJN: [id number] /
--- NOTE | 2019-02-08 14:14 | PCN ---
PROCEDURE NOTE OPERATIVE REPORT: Placement of the right radial arterial line. PREOPERATIVE DIAGNOSIS: Respiratory failure. POSTOPERATIVE DIAGNOSIS: Respiratory failure. ANESTHESIA USED: None deployed. PROCEDURE: The right wrist was prepared in a sterile fashion, drapes were applied. The right radial artery was palpated, easily cannulated, a guidewire was placed, and a Cook's catheter was inserted over the guidewire. The guidewire was removed, the line was secured using 3.0 silk sutures. There was evidence of good waveform and good blood flow. No evidence of any immediate complications. MMODL / IJN: [id number] /
--- NOTE | 2019-02-08 14:17 | PCN ---
PROCEDURE NOTE OPERATIVE REPORT: Placement of right femoral triple-lumen catheter. PREOPERATIVE DIAGNOSIS: Acute respiratory failure. POSTOPERATIVE DIAGNOSIS: Acute respiratory failure. ANESTHESIA USED: 2 mL of 1% lidocaine. PROCEDURE: The right groin was prepared in a sterile fashion, drapes were applied. The right femoral vein was cannulated easily with one stick, a guidewire was placed, the area around the guidewire was dilated, then a triple-lumen catheter was inserted over the guidewire, and the guidewire was removed. Good blood flow was noted in the 3 different ports of the triple-lumen catheter. Line was secured using 3.0 silk sutures. Procedure was well tolerated. No evidence of any immediate complications. MMODL / IJN: [id number] /
--- NOTE | 2019-02-08 14:44 | PCN ---
PROCEDURE NOTE PROCEDURE: Bronchoscopy and endobronchial evaluation of the left lung. PREOPERATIVE DIAGNOSIS: Left lung opacification on chest x-ray, and possible endobronchial mucous plugs. POSTOPERATIVE DIAGNOSIS: Left lung opacification on chest x-ray, and possible endobronchial mucous plugs; however, there was no evidence of endobronchial bronchial tumors and there was no evidence of the mucus plug. ANESTHESIA USED: Patient was already on propofol, and she received earlier, succinylcholine and morphine. Patient was already intubated, she was on mechanical ventilation, and we were able to monitor her O2 saturation continuously. Blood pressure was continuously monitored through an arterial line. PROCEDURE: Patient's endotracheal tube was connected to an adapter, and an adapter was connected to mechanical ventilation. Then the bronchoscope was inserted through the adapter down to the airways. The tube was noted to be above the glo. Examination of the left lung showed no evidence of endobronchial tumors, no evidence of any purulent secretions, the bronchial tubes were extrinsically compressed, but again there was no evidence of any endobronchial pathology. The right side was also examined. There was no evidence of any endobronchial pathology. No purulent secretions, no endobronchial tumors and no bleeding. The procedure was well tolerated. No evidence of any immediate complications. MMODL / IJN: [id number] /
[2019-02-09] MEDS ORDERED: PANTOPRAZOLE 40 MG TABLET PO SCH (09:00)
== END 2019-02-08 15:10 | disposition short-term general hospital (02) | DRG 754 ==
LOC: EC 12:38 → 3SCARD 15:20 → 2SICU 19:05
PROVIDERS: ADMIT Family Medicine; ATTEND Family Medicine
PROC: 5A09357 Assistance with Respiratory Ventilation, Less than 24 Consecutive Hours, Continuous Positive Airway Pressure (ICD-10-PCS; principal; 2019-02-06)
PROC: 0W9B3ZX Drainage of Left Pleural Cavity, Percutaneous Approach, Diagnostic (ICD-10-PCS; 2019-02-06)
PROC: 3E04317 Introduction of Other Thrombolytic into Central Vein, Percutaneous Approach (ICD-10-PCS; 2019-02-06)
PROC: 0W9B30Z Drainage of Left Pleural Cavity with Drainage Device, Percutaneous Approach (ICD-10-PCS; 2019-02-07)
PROC: 5A1935Z Respiratory Ventilation, Less than 24 Consecutive Hours (ICD-10-PCS; 2019-02-08)
PROC: 0BH17EZ Insertion of Endotracheal Airway into Trachea, Via Natural or Artificial Opening (ICD-10-PCS; 2019-02-08)
PROC: 03HY32Z Insertion of Monitoring Device into Upper Artery, Percutaneous Approach (ICD-10-PCS; 2019-02-08)
PROC: 4A133B1 Monitoring of Arterial Pressure, Peripheral, Percutaneous Approach (ICD-10-PCS; 2019-02-08)
PROC: 4A133J1 Monitoring of Arterial Pulse, Peripheral, Percutaneous Approach (ICD-10-PCS; 2019-02-08)
PROC: 06HY33Z Insertion of Infusion Device into Lower Vein, Percutaneous Approach (ICD-10-PCS; 2019-02-08)
PROC: 0BJ08ZZ Inspection of Tracheobronchial Tree, Via Natural or Artificial Opening Endoscopic (ICD-10-PCS; 2019-02-08)
DX: C56.9 Malignant neoplasm of unspecified ovary (principal); J96.01 Acute respiratory failure with hypoxia; I31.3 Pericardial effusion (noninflammatory); J90 Pleural effusion, not elsewhere classified; N39.0 Urinary tract infection, site not specified; R18.8 Other ascites; F32.9 Major depressive disorder, single episode, unspecified; Z63.4 Disappearance and death of family member; F41.9 Anxiety disorder, unspecified; I45.10 Unspecified right bundle-branch block; K59.09 Other constipation; Z79.899 Other long term (current) drug therapy; Z82.49 Family history of ischemic heart disease and other diseases of the circulatory system; Z80.43 Family history of malignant neoplasm of testis; D47.3 Essential (hemorrhagic) thrombocythemia; R00.0 Tachycardia, unspecified; D27.9 Benign neoplasm of unspecified ovary
CPT/HCPCS: 32551; 36415; 71045; 71046; 76604; 76700; 76856; 77012; 80053; 81001; 82105; 82150; 82805; 82945; 83615; 83690; 83735; 83880; 84157; 84439; 84443; 84484; 85025; 85027; 85610; 85652; 85730; 86038; 86304; 87040; 87070; 87086; 87102; 87116; 87205; 87206; 88108; 88305; 89050; 93005; 93308; 94002; 94660; 94770; 96374; 99285

== ENCOUNTER → 2019-02-06 | Outpatient (CLI) | payer BC ==
--- NOTE | 2019-02-07 10:02 | ECHOF ---
Referral Reason:R94.31 abnormal EKG MEASUREMENTS -------- HEIGHT: 157.5 cm WEIGHT: 111.1 kg BP: RVIDd: 3.4 cm (< 3.3) IVSd: 1.2 cm (0.6 - 1.1) LVIDd: 4.0 cm (3.9 - 5.3) LVPWd: 1.2 cm (0.6 - 1.1) IVSs: 1.4 cm LVIDs: 2.1 cm LVPWs: 1.8 cm LA Diam: 2.5 cm (2.7 - 3.8) Ao Diam: 2.7 cm (2.0 - 3.7) AV Cusp: 1.5 cm (1.5 - 2.6) LA Diam: 3.3 cm (2.7 - 3.8) MV EXCURSION: 19.544 mm (> 18.000) MV EF SLOPE: 83 mm/s (70 - 150) EPSS: 0.4 cm MV E Abraham: 0.70 m/s MV DecT: 254 ms MV A Abraham: 0.94 m/s MV E/A Ratio: 0.74 FINDINGS -------- Sinus rhythm. This was a technically adequate study. The left ventricular size is normal. There is mild concentric left ventricular hypertrophy. Overa ll left ventricular systolic function is low-normal with, an EF between 50 - 55 %. The right ventricle is normal in size. The left atrial size is normal. The right atrial size is normal. There is mild aortic valve sclerosis. There is no evidence of aortic regurgitation. Mild mitral annular calcification present. Mild mitral regurgitation is present. Mild tricuspid regurgitation present. Unable to estimate RVSP due to inadequate TR jet spectral dop pler profile. The aortic root size is normal. lARGE PLEURAL EFFUSION MINIMAL PERICARDIAL EFFUSION . CONCLUSIONS -------- 1. Sinus rhythm. 2. This was a technically adequate study. 3. The left ventricular size is normal. 4. Overall left ventricular systolic function is low-normal with, an EF between 50 - 55 %. 5. The right ventricle is normal in size. 6. The left atrial size is normal. 7. The right atrial size is normal. 8. There is mild aortic valve sclerosis. 9. Mild mitral annular calcification present. 10. Mild mitral regurgitation is present. 11. Mild tricuspid regurgitation present. 12. Unable to estimate RVSP due to inadequate TR jet spectral doppler profile. 13. The aortic root size is normal. 14. Large Pleural Effusion with Fibrin. SOFTWARE ENGINEER: Shannen Hogan RDCS
--- NOTE | 2019-02-08 11:26 | HM ---
HOLTER MONITOR REPORT A 24-hour monitoring shows sinus mechanism with sinus tachycardia. No arrhythmias noted. Heart rates ranged from 84-150 beats per minute, average 107 beats. IMPRESSION: Sinus tachycardia. KHLOE / LING: [id number] /
== END | disposition home or self-care (01) ==
LOC: RADECHMAIN 11:19
PROVIDERS: ATTEND Family Medicine
DX: I08.3 Combined rheumatic disorders of mitral, aortic and tricuspid valves (principal); J90 Pleural effusion, not elsewhere classified; R00.0 Tachycardia, unspecified
CPT/HCPCS: 93225; 93226; 93306

== ENCOUNTER 2019-03-04 06:24 | Emergency (ER) | payer BC ==
[2019-03-04 06:31] VITALS: RESP 18
--- NOTE | 2019-03-04 06:49 | ED ---
General Adult HPI - General Source: patient, EMS, RN notes reviewed Mode of arrival: EMS Limitations: no limitations <Fam Billingsley - Last Filed: 03/04/19 08:08> <Tj Dwyer - Last Filed: 03/04/19 08:45> - General Chief complaint: Recheck/Abnormal Lab/Rx Stated complaint: Chest Tube Issue Time Seen by Provider: 03/04/19 06:29 - History of Present Illness Initial comments: This a 38-year-old female presents from [facility] with chief complaint of right toe chest tube catheter fell out. Patient was recently admitted to the ICU in which patient had chest tube placed by interventional radiology. Patient was later transferred to [facility] after NETWORK OPERATIONS ANALYST's recommendations. Patient was discharged from [facility] a few weeks ago to rehab facility. Patient states that she had another chest tube placed last by [facility]. Patient denies any complaints including chest pain, shortness of breath, fevers or chills. Patient has a history of ovarian cancer/MEIGS syndrome (Fam Billingsley) - Related Data Home Medications Medication Instructions Recorded Confirmed Docusate [Colace] 100 mg PO HS 02/06/19 02/06/19 Famotidine [Pepcid] 40 mg PO BID 02/06/19 02/06/19 Ibuprofen [Motrin Ib] 800 mg PO TID PRN 02/06/19 02/06/19 Ondansetron [Zofran ODT] 4 mg PO QID 02/06/19 02/06/19 Sertraline [Zoloft] 50 mg PO DAILY 02/06/19 02/06/19 Previous Rx's Medication Instructions Recorded Acetaminophen Tab [Tylenol] 650 mg PO Q6HR PRN tab 02/08/19 Ibuprofen [Motrin] 400 mg PO Q6HR PRN tab 02/08/19 Metoprolol Tartrate [Lopressor] 12.5 mg PO BID tab 02/08/19 Zolpidem [Ambien] 5 mg PO HS PRN tab 02/08/19 cefTRIAXone [Rocephin] 1 gm IVPB Q24HR vial 02/08/19 Allergies Allergy/AdvReac Type Severity Reaction Status Date / Time No Known Allergies Allergy Verified 03/04/19 06:30 Review of Systems ROS Other: All systems not noted in ROS Statement are negative. <Fam Billingsley - Last Filed: 03/04/19 08:08> ROS Other: All systems not noted in ROS Statement are negative. <Tj Dwyer - Last Filed: 03/04/19 08:45> ROS Statement: Those systems with pertinent positive or pertinent negative responses have been documented in the HPI. Past Medical History Past Medical History: No Reported History History of Any Multi-Drug Resistant Organisms: None Reported Past Surgical History: Orthopedic Surgery Additional Past Surgical History / Comment(s): Ankle surgery for left broken ankle, with pins placed Past Psychological History: Anxiety, Depression Smoking Status: Never smoker Past Alcohol Use History: None Reported Past Drug Use History: None Reported - Past Family History Mother Family Medical History: Coronary Artery Disease (CAD) Additional Family Medical History / Comment(s): at age 62-bad valve- pacemaker Father Family Medical History: Cancer Additional Family Medical History / Comment(s): Testicular cancer <Fam Billingsley - Last Filed: 03/04/19 08:08> General Exam Limitations: no limitations General appearance: alert, in no apparent distress Head exam: Present: atraumatic, normocephalic, normal inspection Respiratory exam: Present: decreased breath sounds. Absent: normal lung sounds bilaterally, respiratory distress, wheezes, rales, rhonchi, stridor Cardiovascular Exam: Present: regular rate, normal rhythm, normal heart sounds. Absent: systolic murmur, diastolic murmur, rubs, gallop, clicks GI/Abdominal exam: Present: soft, normal bowel sounds. Absent: distended, tenderness, guarding, rebound, rigid <Fam Billingsley - Last Filed: 03/04/19 08:08> Course Vital Signs 03/04/19 03/04/19 03/04/19 06:26 07:15 08:23 Temperature 98.8 F 98.2 F Pulse Rate 100 99 85 Respiratory 18 18 18 Rate Blood Pressure 129/91 127/83 124/80 O2 Sat by Pulse 98 98 98 Oximetry Medical Decision Making <Fam Billingsley - Last Filed: 03/04/19 08:08> <Tj Dwyer - Last Filed: 03/04/19 08:45> - Medical Decision Making Chest x-ray shows resolving infiltrate, trace pleural effusion greatly improved from prior. Case discussed with Dr. snyder who recommends the patient that have occlusive dressing over the area, patient will be followed up with [facility] on outpatient setting for placement of chest tube. Patient is asymptomatic patient's vitals are stable patient discharged in stable condition (Fam Billingsley) Case discussed with Dr. Jones who is familiar with this patient. He states that this tube was placed at [facility] and can be done again as an outpatient. I reviewed the chest x-ray there is minimal effusion on the left. Patient has stable vital signs were she is observed in the emergency department. She will be discharged back to [facility] for outpatient replacement of tube. (Tj Dwyer) Disposition Is patient prescribed a controlled substance at d/c from ED?: No Time of Disposition: 08:09 <Fam Billingsley - Last Filed: 03/04/19 08:08> <Tj Dwyer - Last Filed: 03/04/19 08:45> Clinical Impression: Complication of chest tube, Pleural effusion Disposition: HOME SELF-CARE Condition: Stable Instructions (If sedation given, give patient instructions): Pleural Effusion (ED) Additional Instructions: Please return to the Emergency Department if symptoms worsen or any other concerns. Referrals: Aristeo Jones MD [Primary Care Provider] - 1-2 days
--- NOTE | 2019-03-04 06:56 | XR ---
EXAMINATION TYPE: XR chest 2V DATE OF EXAM: 03/04/2019 COMPARISON: 02/08/2019 HISTORY: Short of breath TECHNIQUE: Frontal and lateral views of the chest are obtained. FINDINGS: There is airspace infiltrate left lower lobe. There is slight blunting left costophrenic a ngle. Right lung is clear. There is no heart failure. IMPRESSION: Left lower lobe pneumonia and pleural fluid is significantly improved compared to last e xam.
[2019-03-04 07:27] VITALS: TEMP 98.2
[2019-03-04 08:31] VITALS: BP 124/80; PULSE 85
== END 2019-03-04 08:55 | disposition home or self-care (01) ==
LOC: EC 06:24
DX: T85.9XXA Unspecified complication of internal prosthetic device, implant and graft, initial encounter (principal); J90 Pleural effusion, not elsewhere classified; F41.9 Anxiety disorder, unspecified; F32.9 Major depressive disorder, single episode, unspecified; Z79.899 Other long term (current) drug therapy; Z85.43 Personal history of malignant neoplasm of ovary
CPT/HCPCS: 71046; 99283